=== PATIENT | male | born 1945 | race Caucasian/White ===

== ENCOUNTER 2023-02-13 15:37 | Outpatient (CLI) | payer MEDICARE, SELFPAY | END 2023-02-13 15:38 | disposition home or self-care (01) | LOC: NFLDUCREF 15:38 | PROVIDERS: PCP Family Medicine; Visit Provider Nurse Practitioner Family | DX: L02.212 Cutaneous abscess of back [any part, except buttock and flank] (principal) | CPT/HCPCS: 87070 ==

== ENCOUNTER 2024-01-25 16:51 | Outpatient (CLI) | payer MEDICARE, SELFPAY | END 2024-01-25 16:52 | disposition home or self-care (01) | LOC: AMB 01-29 10:37 | PROVIDERS: PCP Student in an Organized Health Care Education/Training Program; Visit Provider Family Medicine | DX: S79.912A Unspecified injury of left hip, initial encounter (principal); W01.0XXA Fall on same level from slipping, tripping and stumbling without subsequent striking against object, initial encounter; Y92.9 Unspecified place or not applicable | CPT/HCPCS: A0425; A0427 ==

== ENCOUNTER 2024-01-25 17:24 | Inpatient (IN) | payer MEDICARE, SELFPAY ==
[2024-01-25 17:32] VITALS: BP 135/55; PULSE 79; RESP 18; TEMP 36.8; O2SAT 97; BMI 28.1
--- NOTE | 2024-01-25 17:33 | ED.GENADULT ---
HPI - General Adult General Time Seen by Provider: 17:33 Date Seen: 01/25/24 Chief complaint: Hip Injury/Pain Stated complaint: Possible L hip fracture Time Seen by Provider: 01/25/24 17:26 Source: patient, family, EMS, RN notes reviewed and old records reviewed Mode of arrival: EMS Limitations: no limitations History of Present Illness HPI narrative: 78-year-old male who comes in today with left hip pain. Patient was getting out of his car, stepped off the curb lost his balance and fell on his left hip. Denies head injury, and has some abrasions of his left hand but no other injuries. Did not take a blood thinner, currently on lisinopril, atorvastatin, and aspirin. Recently treated for an abscess on his back but that has cleared. Related Data Home Medications Medication Instructions Recorded Confirmed atorvastatin 20 mg tablet 20 mg PO QDAY 02/13/23 01/01/24 lisinopril 10 mg tablet 10 mg PO QDAY 02/13/23 01/01/24 Allergies Allergy/AdvReac Type Severity Reaction Status Date / Time No Known Drug Allergies Allergy Verified 01/01/24 13:16 [facility], [facility] Medical History Infected sebaceous cyst ?L72.3 - Sebaceous cyst (ICD-10) ?L08.9 - Local infection of the skin and subcutaneous tissue, unspecified (ICD-10) Abscess ?L02.91 - Cutaneous abscess, unspecified (ICD-10) Social History Smoking Status: Never smoker Exam Narrative: Exam Narrative: General: Well-developed and well-nourished, no acute distress Head: Atraumatic and normocephalic Eyes: Pupils are equal reactive, extraocular motions intact, conjunctiva clear ENT: External nose and ears are normal, posterior pharynx without erythema or exudate Neck: No midline cervical tenderness, full spontaneous range of motion the neck, trachea midline, no adenopathy Heart: Regular rate and rhythm no murmurs or thrills Lungs: Clear to auscultation bilaterally without wheezes or crackles Abdomen: Soft, nontender, nondistended with active bowel sounds Musculoskeletal: Left leg shortened, externally rotated with deformity at the left hip Neurologic: Awake, alert, and oriented x3, no gross focal neurologic deficits, cranial nerves intact as tested Psych: Mood and affect are appropriate Skin: No rashes Const: Vital Signs, click to edit/add: Vital Signs - 24 hr 01/25/24 17:32 Temperature 98.2 F Pulse Rate [Right Pulse Oximeter] 79 Respiratory Rate 18 Blood Pressure [Ri ght Upper Arm] 135/55 L Pulse Oximetry 97 Oxygen Delivery Me thod Room Air Course Course ED Course: Patient seen and examined, reviewed most recent urgent care note from December 31 when patient was diagnosed with an abscess of the back, this was treated with incision and drainage and oral antibiotics. Patient presents today with left hip pain after fall. On exam here, he has some abrasions of the left hand but no pain with movement. He did has obvious deformity at the left proximal femur with left leg externally rotated and shortened. Symptoms are most consistent with hip fracture. Labs are ordered in anticipation for surgery, head CT will be performed given fall and age, left hip x-rays performed. Patient declines pain medication at this time. Plan for admission for surgical repair most likely tomorrow. Reevaluation(s) Time of Reevaluation #1: 18:20 Reevaluation #1: CT scan of the head independently interpreted by me negative for acute findings. X-ray of the left hip with intertrochanteric fracture. Care discussed with Dr. Canales, hospitalist for admission. Labs ordered and independently interpreted by me with normal CBC. Remaining labs are pending at this time. Time of Reevaluation #2: 18:33 Reevaluation #2: Care discussed with Kelli from Orthopedics, patient is stable for admission for surgery tomorrow, NPO after midnight. Vital Signs Vital signs: Initial Vital Signs Temperature 98.2 F 01/25/24 17:32 Temperature Source Temporal Artery Scan 01/25/24 17:32 Pulse Rate 79 01/25/24 17:32 Respiratory Rate 18 01/25/24 17:32 Blood Pressure 135/55 L 01/25/24 17:32 Blood Pressure Mean 81 01/25/24 17:32 Blood Pressure Position Sitting 01/25/24 17:32 Pulse Oximetry 97 01/25/24 17:32 Oxygen Delivery Method Room Air 01/25/24 17:32 Vital Signs Temperature 98.2 F 01/25/24 17:32 Pulse Rate 79 01/25/24 17:32 Respiratory Rate 18 01/25/24 17:32 Blood Pressure 135/55 L 01/25/24 17:32 Pulse Oximetry 97 01/25/24 17:32 Oxygen Delivery Method Room Air 01/25/24 17:32 Temperature 98.2 F 01/25/24 17:32 Pulse Rate 79 01/25/24 17:32 Respiratory Rate 18 01/25/24 17:32 Blood Pressure 135/55 L 01/25/24 17:32 Pulse Oximetry 97 01/25/24 17:32 Oxygen Delivery Method Room Air 01/25/24 17:32 Medical Decision Making Lab Data Labs: Lab Results 01/25/24 Range/Units 18:00 WBC 6.54 (4.50-11.00) K/uL RBC 4.39 (4.30-5.90) m/uL Hgb 12.6 L (13.5-17.5) gm/dL Hct 40.4 (37.0-53.0) % MCV 92 (80-100) fL MCH 29 (26-34) pg MCHC 31 L (32-36) gm/dL RDW Coeff of Brian 14.0 (11.5-15.5) % Plt Count 265 (140-440) K/uL Neut % (Auto) 78.6 H (42.0-72.0) % Lymph % (Auto) 13.3 L (20-44) % [place] % (Auto) 6.3 (0.0-11.0) % Eos % (Auto) 1.4 (0.0-7.0) % Baso % (Auto) 0.2 (0.0-3.0) % Neut # (Auto) 5.10 (1.7-7.0) K/uL Lymph # (Auto) 0.90 (0.90-2.90) K/uL [place] # (Auto) 0.40 (0.00-0.90) K/UL Eos # (Auto) 0.09 (0.00-0.50) K/uL Baso # (Auto) 0.01 (0.00-0.30) K/uL Abs Immat Gran (auto) 0.01 (0.00-0.30) K/uL Imm/Tot Granulo (auto) 0.2 % Discharge Plan Discharge Clinical Impression: Closed intertrochanteric fracture of left femur Patient Disposition: Admitted As Observation
--- NOTE | 2024-01-25 17:43 | CT_ITS ---
Patient: JOSE ANGEL TOBAR Facility:?[facility] Patient ID:?[id number] Site Patient ID:?[id number]. Site :?[id number] Study:?CT-Head WITHOUT-01/25/2024 6:18:59 PM Ordering Physician:ANKITA Final Report: Indication: Fall Technique: CT Head without IV contrast Comparison: None Findings: Brain Parenchyma: Global cortical involutional changes. No acute infarct, acute intracranial hemorrhage, mass effect, or midline shift. Periventricular and supraventricular white matter hypodensity, suggestive of chronic microvascular ischemic changes. Ventricles: No hydrocephalus. Mild ventricular enlargement, commensurate with the degree of cortical involutional changes and sulcal prominence. Extra-axial Spaces: No abnormal fluid collection. Paranasal sinuses: No significant mucosal thickening. Orbits: Unremarkable. Mastoid Sinuses: Unremarkable. Cranium: No acute fracture. Soft tissues: Unremarkable. Impression: No evidence of an acute intracranial process or acute traumatic injury. Please note that all CT scans at this facility use dose modulation, iterative reconstruction, and/or weight-based dosing when appropriate to reduce radiation dose to as low as reasonably achievable. Dictated by Ander Pleitez MD @ 01/25/2024 6:25:05 PM Signed by:?Ander Pleitez MD @01/25/2024 6:25:05 PM (Electronic Signature)
--- NOTE | 2024-01-25 17:43 | XR_ITS ---
Patient: JOSE ANGEL TOBAR Facility:?[facility] Patient ID:?[id number] Site Patient ID:?[id number]. Site :?[id number] Study:?XRay-Hip Left 2 VIEW AND PELVIS-01/25/2024 6:19:18 PM Ordering Physician:ANKITA Final Report: Indication: HIP FRACTURE, PREOP Technique: Frontal view of the pelvis and frontal and lateral views of the left hip Comparison: None Findings/impression : Minimally comminuted left femoral intertrochanteric fracture with mild lateral displacement of the distal fracture segment. The left femoral head maintains its articulation with the acetabulum. No additional fractures. No suspicious osseous lesions. Iliac grafts. Likely dystrophic calcifications of the prostate. Vascular calcifications. Dictated by Ander Pleitez MD @ 01/25/2024 6:30:23 PM Signed by:?Ander Pleitez MD @01/25/2024 6:30:23 PM (Electronic Signature)
--- NOTE | 2024-01-25 17:43 | XR_ITS ---
Patient: JOSE ANGEL TOBAR Facility:?[facility] Patient ID:?[id number] Site Patient ID:?[id number]. Site :?1945 Study:?XRay-Chest 1 VIEW SUPINE-01/25/2024 6:19:10 PM Ordering Physician:ANKITA Final Report: Indication HIP FRACTURE, PREOP Technique One view(s) of the chest Comparison None Findings The cardiomediastinal silhouette and pulmonary vasculature are unremarkable. There is no focal airspace consolidation, pleural effusion, or pneumothorax. No displaced fractures. Abdominal aortic graft. Impression No acute cardiopulmonary process. Dictated by Ander Pleitez MD @ 01/25/2024 6:26:35 PM Signed by:?Ander Pleitez MD @01/25/2024 6:26:35 PM (Electronic Signature)
[2024-01-25 18:11] LABS: Basophils Absolute Auto 0.01 K/uL (0.00-0.30); Basophils Percent Auto 0.2 % (0.0-3.0); Eosinophils Absolute Auto 0.09 K/uL (0.00-0.50); Eosinophils Percent Auto 1.4 % (0.0-7.0); Hematocrit 40.4 % (37.0-53.0); Hemoglobin* 12.6 gm/dL (13.5-17.5); Immature Granulocytes Abs Auto 0.01 K/uL (0.00-0.30); Immature Granulocytes Pct Auto 0.2 %; Lymphocytes Percent Auto 13.3 % (20-44); Mean Corpuscular HGB Conc 31 gm/dL (32-36); Mean Corpuscular Hemoglobin 29 pg (26-34); Mean Corpuscular Volume 92 fL (80-100); Monocytes Percent Auto 6.3 % (0.0-11.0); Neutrophils Percent Auto 78.6 % (42.0-72.0); Platelet Count* 265 K/uL (140-440); Red Blood Count 4.39 m/uL (4.30-5.90); White Blood Count* 6.54 K/uL (4.50-11.00)
[2024-01-25 18:16] LABS: Slide Review Reflex No
[2024-01-25 18:30] VITALS: BP 136/57; PULSE 76; RESP 16; O2SAT 97
[2024-01-25 18:38] LABS: INR 0.96 (0.91-1.10); Prothrombin Time 13.4 Seconds
[2024-01-25 18:44] LABS: Chloride* 108 mmol/L (96-114); Potassium* 3.9 mmol/L (3.6-5.1); Sodium* 139 mmol/L (135-149)
[2024-01-25 18:46] LABS: Creatinine* 0.8 mg/dL (0.5-1.5); Est. Creatinine Clearance* 57.95; Estimated Glomerular Filt Rate 90 ml/min
[2024-01-25 18:47] LABS: Anion Gap 5 mEq/L (7-15); Blood Urea Nitrogen* 24 mg/dL (7-30); Calcium* 9.2 mg/dL (8.4-10.6); Carbon Dioxide* 26 mmol/L (20-32); Glucose* 106 mg/dL (60-115)
[2024-01-25 18:50] VITALS: BP 147/64; PULSE 73; RESP 16; TEMP 36.8; O2SAT 97; BMI 27.8
--- NOTE | 2024-01-25 18:51 | PM.IMHP1 ---
Hospitalist- H&P: HPI History of Present Illness Date Seen: 01/26/24 Chief complaint: Possible L hip fracture Narrative: ADMISSION HISTORY AND PHYSICAL - HOSPITALIST Chief Complaint: I fell, left hip pain HPI: 78-year-old male who was getting out of the vehicle driven by his [id number] when he lost his footing and fell on to his left hip. EMS was called. He was complaining of left hip pain. No loss of consciousness. No bleeding or other injuries. He had felt well prior, his usual state of health. He enjoyed watching a baseball game with his son and [id number]. She was dropping him off. His past medical history is most relevant for a repair of an aortic aneurysm in 2019. A distant history of an acute MD with angioplasty in the mid s. He takes Zestril and Lipitor. He lives alone. He no longer drives. ER COURSE: Displaced intertrochanteric left hip fracture diagnosed in the ED. Negative head CT. Negative chest x-ray. Normal lab work. Pain is minimal at rest. CODE STATUS: FULL CODE EMERGENCY CONTACT PLAN: Mayelin Patel? Son?Rel to Pat? [phone]?Cell Phone I've updated the PFSH, medications and allergies in the Expanse tabs. INVESTIGATIONS: LABS/MICRO/ECG/IMAGING CBC is reviewed. Hemoglobin 12.6, hematocrit 40.4. Normal white blood cell count. Normal platelets. INR 0.96. Chemistries normal. Including magnesium. Radiology studies: Impression: No evidence of an acute intracranial process or acute traumatic injury. Impression No acute cardiopulmonary process. Findings/impression : Minimally comminuted left femoral intertrochanteric fracture with mild lateral displacement of the distal fracture segment. The left femoral head maintains its articulation with the acetabulum. No additional fractures. No suspicious osseous lesions. Iliac grafts. Likely dystrophic calcifications of the prostate. Vascular calcifications. REVIEW OF SYSTEMS: 12-point ROS completed with patient and negative unless otherwise stated in HPI or below. PHYSICAL EXAM: CONSTITUTIONAL: Moderately OSAGE. Insightful. Flat affect. VITAL SIGNS: see record. HEENT: Normocephalic, atraumatic. PERRL, EOMI, conjunctivae pink, no scleral icterus. Ears and nose externally normal. Pharynx normal. NECK: No JVD. No carotid bruit, no thyromegaly, no adenopathy. CHEST: Clear to auscultation bilaterally HEART: S1 and S2 normal. No harsh murmurs. Edema MUSCULOSKELETAL: Externally rotated left lower extremity with normal distal pulses. Can move his toes and flex his ankle. NEURO: Cranial nerves intact. Grossly intact. No asymmetric findings. SKIN: No rashes, petechiae, concerning changes PSYCHIATRIC: Euthymic. ADMIT TO MEDSURG: FLOOR CARE DVT: SCDs, Xarelto after surgery transitioning to aspirin GI: PO intake Time spent: Today I spent 75 minutes seeing the patient, discussing the patient with ER staff, reviewing Expanse and EPIC notes/diagnostics, discussing the care plan with our care time that includes social work, PT/OT, pharmacy, RT, penitentiary and documenting my impressions and plan in the medical record. [facility] Medical History Mild tetrahydrocannabinol (THC) abuse ?F12.10 - Cannabis abuse, uncomplicated (ICD-10) DOTTIE (obstructive sleep apnea) ?G47.33 - Obstructive sleep apnea (adult) (pediatric) (ICD-10) CAD (coronary artery disease) ?I25.10 - Atherosclerotic heart disease of [place] coronary artery without angina pectoris (ICD-10) AAA (abdominal aortic aneurysm) ?I71.40 - Abdominal aortic aneurysm, without rupture, unspecified (ICD-10) HTN (hypertension) ?I10 - Essential (primary) hypertension (ICD-10) Hyperlipidemia ?E78.5 - Hyperlipidemia, unspecified (ICD-10) Former smoker ?Z87.891 - Personal history of nicotine dependence (ICD-10) Infected sebaceous cyst ?L72.3 - Sebaceous cyst (ICD-10) ?L08.9 - Local infection of the skin and subcutaneous tissue, unspecified (ICD-10) Surgical History Status post endovascular aneurysm repair (EVAR) ?Z98.890 - Other specified postprocedural states (ICD-10) ?Z86.79 - Personal history of other diseases of the circulatory system (ICD-10) S/P PTCA (percutaneous transluminal coronary angioplasty) ?Z98.61 - Coronary angioplasty status (ICD-10) S/P rotator cuff repair ?Z98.890 - Other specified postprocedural states (ICD-10) H/O inguinal hernia repair ?Z98.890 - Other specified postprocedural states (ICD-10) ?Z87.19 - Personal history of other diseases of the digestive system (ICD-10) History of laparoscopic cholecystectomy ?Z90.49 - Acquired absence of other specified parts of digestive tract (ICD-10) H/O Spinal surgery ?Z98.890 - Other specified postprocedural states (ICD-10) Family History Sister Seizure disorder Social History Narrative: -moved to [place] from [place] in 2020. #1. #2 ( in pandemic). moved to [place] after her . sounds as if there was heavy alcohol use prior to her . 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 -heavy smoker until early -drinks wine, 1 glass, a few nights a week -does not drive -son Mayelin and his , Faye, are his emergency contacts -lives [place] by himself. no services. What is your current living situation?: I presently have a place to live Problems where you live: no known problems Problems where you live details: NA In the past 12 months, utilities in danger of being shut off: no In past 12 months, lack of transportation kept you from medical appts, meetings, work, or getting things needed for daily living: no In the past 12 mos, have been you worried that your food would run out before you had money to buy more?: never true In the past 12 mos, the food you bought just didn't last and you didn't have money to buy more?: never true Smoking Status: Never smoker How often do you have a drink containing alcohol: 4 or more times a week Alcohol type: wine Alcohol type details: glass of wine every night How many standard drinks containing alcohol do you have on a typical day: 1 or 2 AUDIT-C Alcohol total score: 4 How often does anyone, including family, friends and others, physically hurt you: never How often does anyone, including family, friends and others, insult or talk down to you: never How often does anyone, including family, friends and others, threaten you with harm: never How often does anyone, including family, friends and others, scream or curse at you: never Meds Home Medications and Allergies Home Medications Medication Instructions Recorded Confirmed Type atorvastatin 20 mg tablet 80 mg PO QDAY 02/13/23 01/26/24 History lisinopril 10 mg tablet 20 mg PO QDAY 02/13/23 01/26/24 History Allergies Allergy/AdvReac Type Severity Reaction Status Date / Time No Known Drug Allergies Allergy Verified 01/01/24 13:16 Exam Const: Vital Signs, click to edit/add: Vital Signs - 24 hr 01/25/24 17:32 Temperature 98.2 F Pulse Rate [Right Pulse Oximeter] 79 Respiratory Rate 18 Blood Pressure [Ri ght Upper Arm] 135/55 L Pulse Oximetry 97 Oxygen Delivery Me thod Room Air Hospitalist - H&P: Result Labs Labs: Short CBC 01/25/24 Range/Units 18:00 WBC 6.54 (4.50-11.00) K/uL Hgb 12.6 L (13.5-17.5) gm/dL Hct 40.4 (37.0-53.0) % Plt Count 265 (140-440) K/uL BMP 01/25/24 18:00 Sodium 139 Potassium 3.9 Chloride 108 Carbon Dioxide 26 BUN 24 Creatinine 0.8 Glucose 106 Calcium 9.2 Assessment and Plan Assessment and plan (1) Closed intertrochanteric fracture of left femur: Problem comment: -pt is stable, preoperative clearance is complete. No further workup needed. -hospital medicine team is happy to follow through to discharge and manage any perioperative concerns. -patient is not anticoagulated, will be on telemetry and preop is complete Status: Acute (2) CAD (coronary artery disease): Problem comment: distant hx of MD/PTCA (1993). no stents. -maintain telemetry Status: Acute (3) HTN (hypertension): Problem comment: zestril and aspirin -hold Zestril on the morning of 01/25 and react post surgery Status: Acute (4) DOTTIE (obstructive sleep apnea): Problem comment: has not worn CPAP in recent years -monitor oxygen saturations and supplemental O2 was ordered p.r.n. Status: Acute (5) Former smoker: Problem comment: 80+ pack year hx. quit in early 1999' Status: Acute (6) Mild tetrahydrocannabinol (THC) abuse: Problem comment: rare use (2x/last 6 months) - previous regular user Status: Acute
[2024-01-25 19:05] VITALS: O2SAT 96
[2024-01-25] MEDS: 0.9 % SODIUM CHLORIDE 1000 ml 1,000 ML 125 ML IV (20:31)
[2024-01-25] MEDS: ATORVASTATIN 10 MG TABLET 20 MG PO (21:17)
[2024-01-25 22:37] VITALS: BP 104/52; PULSE 73; RESP 17; TEMP 36.4; O2SAT 96
[2024-01-25] MEDS: HYDROmorphone 0.5 mg/0.5 ml inj IVP (22:50)
[2024-01-25 23:05] VITALS: PULSE 75
[2024-01-26] VITALS (26 sets, daily range): BP systolic 89–135; BP diastolic 45–92; PULSE 68–86; RESP 16–20; TEMP 36.4–37; O2SAT 91–98
[2024-01-26] MEDS: HYDROmorphone 0.5 mg/0.5 ml inj IVP ×3 (01:27→19:47)
[2024-01-26] MEDS: OXYCODONE 5 MG TABLET PO ×4 (04:11→23:05)
[2024-01-26] MEDS: 0.9 % SODIUM CHLORIDE 1000 ml 1,000 ML 125 ML IV (04:15)
--- NOTE | 2024-01-26 04:58 | PC.NURSE ---
Patient pleasant, alert and oriented.?Remained in bed. Non-weight bearing due to left hip fracture. Two skin tears to left hand cleansed with NS. Steri-strips and bandaids applied. Given PRN Dilaudid and Oxycodone for?left hip pain rated 3-4/10. Repositioned as pt allowed. NPO after midnight. Sip of water with pill during the night.?
--- NOTE | 2024-01-26 06:53 | PC.NURSE ---
Patient attempted to urinate in urinal x2 tonight. Bladdar scan at 0600 showed 526mL. Patient was straight cathed at that time. 600mL of clear straw colored urine drained. Patient tolerated catheterization well.
[2024-01-26] MEDS: CEFAZOLIN 2 GM in 0.9 % SODIUM CHLORIDE Mini-bag 100 ML IVPB ×2 (07:56→19:14)
--- NOTE | 2024-01-26 09:13 | PM.IMPN1 ---
Progress Note: A&P Assessment and plan (1) Closed intertrochanteric fracture of left femur: Problem details: -pt is stable, preoperative clearance is complete. No further workup needed. -hospital medicine team is happy to follow through to discharge and manage any perioperative concerns. -patient is not anticoagulated, will be on telemetry and preop is complete Status: Acute (2) CAD (coronary artery disease): Problem details: distant hx of MS/PTCA (1993). no stents. -maintain telemetry Status: Acute (3) HTN (hypertension): Problem details: zestril and aspirin -hold Zestril on the morning of 01/25 and react post surgery Status: Acute (4) DOTTIE (obstructive sleep apnea): Problem details: has not worn CPAP in recent years -monitor oxygen saturations and supplemental O2 was ordered p.r.n. Status: Acute (5) Former smoker: Problem details: 80+ pack year hx. quit in early Status: Acute (6) Mild tetrahydrocannabinol (THC) abuse: Problem details: rare use (2x/last 6 months) - previous regular user Status: Acute (7) Urinary retention: Problem details: Status post fall with left femur fracture, preoperatively, hip precautions in place Continue bladder scans, straight cath p.r.n., consider indwelling [place] cath prior to surgery Status: Acute Time Spent With Patient Total time spent: Total time spent caring for the patient today was 45 minutes. This includes time spent for the visit reviewing the chart, time spent during the visit, time spent after the visit and documentation and planning in coordination of care. Subjective Date Seen: 01/26/24 Interval history: It is seen preoperatively this morning, lying in bed, hip precautions. Reports pain is currently adequately managed, having just taken a pain pill. Denies headache or dizziness. Denies chest pain or shortness of breath. Currently NPO. Denies nausea. Nursing staff reports urinary retention, 600 mL measured. Scheduled for OR this afternoon. Continue to monitor urine output. May need to leave [place] catheter in place prior to surgery. Exam Narrative: Exam Narrative: PHYSICAL EXAM General: Pleasant, conversant, NAD HEENT: Normocephalic, atraumatic, sclera white, EOMI, oral mucosa moist Cardiovascular: RRR, S1S2. No pitting edema Pulmonary: CTA bilaterally without rhonchi, rales, expiratory wheezes. No dyspnea Abdominal: Soft, nondistended, NTTP Neurological: Alert, answering questions appropriately, cranial nerves intact, no focal findings Extremities: Lies with left hip externally rotated as most comfortable. Neurovascularly intact Skin: Warm, dry. Const: Vital Signs, click to edit/add: Vital Signs - 24 hr 01/25/24 17:32 01/25/24 18:30 01/25/24 18:50 Temperature 98.2 F 98.2 F Pulse Rate Pulse Rate [Pulse Oximeter] 73 Pulse Rate [Right Pulse Oximeter] 79 76 Respiratory Rate 18 16 16 Blood Pressure [Ri ght Arm] 147/64 H Blood Pressure [Ri ght Upper Arm] 135/55 L 136/57 L Pulse Oximetry 97 97 97 Oxygen Delivery Me thod Room Air Room Air 01/25/24 19:05 01/25/24 22:37 01/25/24 22:37 Temperature 97.5 F L Pulse Rate Pulse Rate [Pulse Oximeter] 73 Pulse Rate [Right Pulse Oximeter] Respiratory Rate 17 Blood Pressure [Ri ght Arm] 104/52 L Blood Pressure [Ri ght Upper Arm] Pulse Oximetry 96 96 96 Oxygen Delivery Nj thod Room Air Room Air 01/25/24 23:05 01/26/24 02:55 01/26/24 07:00 Temperature 98.6 F Pulse Rate 75 Pulse Rate [Pulse Oximeter] 84 Pulse Rate [Right Pulse Oximeter] Respiratory Rate 17 Blood Pressure [Ri ght Arm] 108/49 L Blood Pressure [Ri ght Upper Arm] Pulse Oximetry 92 94 Oxygen Delivery Nj thod Room Air 01/26/24 07:00 01/26/24 07:00 Temperature 98.5 F Pulse Rate Pulse Rate [Pulse Oximeter] 84 84 Pulse Rate [Right Pulse Oximeter] Respiratory Rate 16 16 Blood Pressure [Ri ght Arm] 126/61 Blood Pressure [Ri ght Upper Arm] Pulse Oximetry 94 Oxygen Delivery Nj thod Room Air Labs Labs: Laboratory Results - last 24 hr 01/25/24 18:00 WBC 6.54 RBC 4.39 Hgb 12.6 L Hct 40.4 MCV 92 MCH 29 MCHC 31 L RDW Coeff of Brian 14.0 Plt Count 265 Neut % (Auto) 78.6 H Lymph % (Auto) 13.3 L Josephine % (Auto) 6.3 Eos % (Auto) 1.4 Baso % (Auto) 0.2 Neut # (Auto) 5.10 Lymph # (Auto) 0.90 Josephine # (Auto) 0.40 Eos # (Auto) 0.09 Baso # (Auto) 0.01 Abs Immat Gran (auto) 0.01 Imm/Tot Granulo (auto) 0.2 INR 0.96 Sodium 139 Potassium 3.9 Chloride 108 Carbon Dioxide 26 Anion Gap 5 L BUN 24 Creatinine 0.8 Estimated Creat Clear 57.95 Estimated GFR 90 Glucose 106 Calcium 9.2 Magnesium 2.0
[2024-01-26] MEDS: MIDAZOLAM HCL 1 MG/ML inj IVP (12:12)
[2024-01-26] MEDS: fentaNYL 100 MCG/2 ML inj IVP (12:14)
--- NOTE | 2024-01-26 12:24 | SUR.PREOP ---
Pt brought down to [facility] for purposes on the preop Block by anesthesia
[2024-01-26] MEDS: LACTATED RINGERS 1000 ML 1,000 ML 100 ML IV (12:25)
--- NOTE | 2024-01-26 12:27 | SUR.PREOP ---
TIME?OUT:?1212, left hip PT/RN/MDA?VERIFICATION?OF?SURGICAL?SITE,?PROCEDURE,?AND?CONSENT OBTAINED?PRIOR?TO?INVASIVE?PROCEDURE.
--- NOTE | 2024-01-26 12:28 | W.PM.NB ---
Nerve Block Nerve Block Time Seen by Provider: 12:20 Date Seen: 01/26/24 Type of block requested by surgeon for post-operative analgesia: OLGA/LFCN Side: left Time out performed: Yes Verification of patient name: Yes Verification of date of : Yes Site marking: site marked Name of person performing procedure: John Continuous monitoring Was continuous monitoring of O2 sat, B/P, cardiac exercise specialist, recorded every 15 minutes?: Yes Procedure Checklist: sterile prep, needles and gloves Ultrasound guided. Images saved: Yes Medications given in 5ml increments after negative aspiration: Ropivicaine %: 0.5 mL: 30 Needle gauge: 20 Decadron (mg): 10 Precedex (mcg): 25 Patient tolerated procedure well: Yes Additional comments: Needle noted below psoas tendon needle noted adjacent to LFCN Block Charges Block Charge (with Pro Fee): Other Periph Nerve Block Use of Ultrasound Machine for Block: Yes- US Guidance/pain block
--- NOTE | 2024-01-26 12:28 | W.ANESCHARGE ---
Anesthesia Charges Start Date/Time Anesthesia Start Date: 01/26/24 Stop Date/Time Anesthesia Stop Date: 01/26/24 Summary Extremes of Age - Over 70 or under 1: MDA
[2024-01-26] MEDS: CEFAZOLIN 1 GM in 0.9 % SODIUM CHLORIDE Mini-bag 100 ML IVPB (12:45)
--- NOTE | 2024-01-26 12:47 | PM.ORCN ---
History of Present Illness HPI Date Seen: 01/26/24 Chief complaint: Possible L hip fracture Narrative: Thad is a pleasant 78-year-old male. He was getting out of a vehicle and trying to step up onto a curb when unfortunately has foot did not fully cleared. He started tipped backwards. Lost his balance. Fell onto his left hip. Difficulty bearing weight. Presented [facility]. X-rays were obtained revealed a left intertrochanteric femur fracture displaced, shortened, and angulated. He was admitted to the hospital and Orthopedics was consulted accordingly. His past medical history is most relevant for a repair of an aortic aneurysm in 2019 (stenting). A distant history of an acute VT with angioplasty in the mid s. He lives alone. Community ambulator. [facility] Medical History Mild tetrahydrocannabinol (THC) abuse ?F12.10 - Cannabis abuse, uncomplicated (ICD-10) DOTTIE (obstructive sleep apnea) ?G47.33 - Obstructive sleep apnea (adult) (pediatric) (ICD-10) CAD (coronary artery disease) ?I25.10 - Atherosclerotic heart disease of [place] coronary artery without angina pectoris (ICD-10) AAA (abdominal aortic aneurysm) ?I71.40 - Abdominal aortic aneurysm, without rupture, unspecified (ICD-10) HTN (hypertension) ?I10 - Essential (primary) hypertension (ICD-10) Hyperlipidemia ?E78.5 - Hyperlipidemia, unspecified (ICD-10) Former smoker ?Z87.891 - Personal history of nicotine dependence (ICD-10) Infected sebaceous cyst ?L72.3 - Sebaceous cyst (ICD-10) ?L08.9 - Local infection of the skin and subcutaneous tissue, unspecified (ICD-10) Surgical History Status post endovascular aneurysm repair (EVAR) ?Z98.890 - Other specified postprocedural states (ICD-10) ?Z86.79 - Personal history of other diseases of the circulatory system (ICD-10) S/P PTCA (percutaneous transluminal coronary angioplasty) ?Z98.61 - Coronary angioplasty status (ICD-10) S/P rotator cuff repair ?Z98.890 - Other specified postprocedural states (ICD-10) H/O inguinal hernia repair ?Z98.890 - Other specified postprocedural states (ICD-10) ?Z87.19 - Personal history of other diseases of the digestive system (ICD-10) History of laparoscopic cholecystectomy ?Z90.49 - Acquired absence of other specified parts of digestive tract (ICD-10) H/O Spinal surgery ?Z98.890 - Other specified postprocedural states (ICD-10) Family History Sister Seizure disorder Social History Narrative: -moved to [place] from [place] in 2020. #1. #2 ( in pandemic). moved to [place] after her . sounds as if there was heavy alcohol use prior to her . 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 -heavy smoker until early -drinks wine, 1 glass, a few nights a week -does not drive -son Mayelin and his , Faye, are his emergency contacts -lives in [place] by himself. no services. What is your current living situation?: I presently have a place to live Problems where you live: no known problems Problems where you live details: NA In the past 12 months, utilities in danger of being shut off: no In past 12 months, lack of transportation kept you from medical appts, meetings, work, or getting things needed for daily living: no In the past 12 mos, have been you worried that your food would run out before you had money to buy more?: never true In the past 12 mos, the food you bought just didn't last and you didn't have money to buy more?: never true Smoking Status: Never smoker How often do you have a drink containing alcohol: 4 or more times a week Alcohol type: wine Alcohol type details: glass of wine every night How many standard drinks containing alcohol do you have on a typical day: 1 or 2 AUDIT-C Alcohol total score: 4 How often does anyone, including family, friends and others, physically hurt you: never How often does anyone, including family, friends and others, insult or talk down to you: never How often does anyone, including family, friends and others, threaten you with harm: never How often does anyone, including family, friends and others, scream or curse at you: never Meds Home Medications and Allergies Home Medications Medication Instructions Recorded Confirmed Type atorvastatin 20 mg tablet 80 mg PO QDAY 02/13/23 01/26/24 History lisinopril 10 mg tablet 20 mg PO QDAY 02/13/23 01/26/24 History Allergies Allergy/AdvReac Type Severity Reaction Status Date / Time No Known Drug Allergies Allergy Verified 01/01/24 13:16 Ortho Exam Narrative Exam Narrative: He is lying supine in his hospital bed upon my interview. He is alert and oriented x3. Cooperative with the exam. Painful at the left hip with any range of motion or knee range of motion. Neurologic intact all 5 dermatomes/myotomes left lower extremity. Palpable DP and PT pulse. No erythema, induration, the cutaneous changes around the left hip. Generalized swelling is noted around the hip. Const Vital Signs, click to edit/add: Vital Signs - 24 hr 01/25/24 17:32 01/25/24 18:30 01/25/24 18:50 Temperature 98.2 F 98.2 F Pulse Rate Pulse Rate [Pulse Oximeter] 73 Pulse Rate [Right Pulse Oximeter] 79 76 Respiratory Rate 18 16 16 Blood Pressure Blood Pressure [Right Arm] 147/64 H Blood Pressure [Right Upper Arm] 135/55 L 136/57 L Pulse Oximetry 97 97 97 Oxygen Delivery Method Room Air Room Air Oxygen Flow Rate 01/25/24 19:05 01/25/24 22:37 01/25/24 22:37 Temperature 97.5 F L Pulse Rate Pulse Rate [Pulse Oximeter] 73 Pulse Rate [Right Pulse Oximeter] Respiratory Rate 17 Blood Pressure Blood Pressure [Right Arm] 104/52 L Blood Pressure [Right Upper Arm] Pulse Oximetry 96 96 96 Oxygen Delivery Method Room Air Room Air Oxygen Flow Rate 01/25/24 23:05 01/26/24 02:55 01/26/24 07:00 Temperature 98.6 F Pulse Rate 75 Pulse Rate [Pulse Oximeter] 84 Pulse Rate [Right Pulse Oximeter] Respiratory Rate 17 Blood Pressure Blood Pressure [Right Arm] 108/49 L Blood Pressure [Right Upper Arm] Pulse Oximetry 92 94 Oxygen Delivery Method Room Air Oxygen Flow Rate 01/26/24 07:00 01/26/24 07:00 01/26/24 10:25 Temperature 98.5 F Pulse Rate 78 Pulse Rate [Pulse Oximeter] 84 84 Pulse Rate [Right Pulse Oximeter] Respiratory Rate 16 16 Blood Pressure Blood Pressure [Right Arm] 126/61 Blood Pressure [Right Upper Arm] Pulse Oximetry 94 Oxygen Delivery Method Room Air Oxygen Flow Rate 01/26/24 11:00 01/26/24 12:14 Temperature 98.3 F Pulse Rate 81 Pulse Rate [Pulse Oximeter] 80 Pulse Rate [Right Pulse Oximeter] Respiratory Rate 18 20 Blood Pressure 133/66 Blood Pressure [Right Arm] 135/61 Blood Pressure [Right Upper Arm] Pulse Oximetry 93 97 Oxygen Delivery Method Room Air Nasal Cannula Oxygen Flow Rate 2 Results Labs Labs: Laboratory Results - last 48 hr 01/25/24 18:00 WBC 6.54 RBC 4.39 Hgb 12.6 L Hct 40.4 MCV 92 MCH 29 MCHC 31 L RDW Coeff of Brian 14.0 Plt Count 265 Neut % (Auto) 78.6 H Lymph % (Auto) 13.3 L Harvey % (Auto) 6.3 Eos % (Auto) 1.4 Baso % (Auto) 0.2 Neut # (Auto) 5.10 Lymph # (Auto) 0.90 Harvey # (Auto) 0.40 Eos # (Auto) 0.09 Baso # (Auto) 0.01 Abs Immat Gran (auto) 0.01 Imm/Tot Granulo (auto) 0.2 INR 0.96 Sodium 139 Potassium 3.9 Chloride 108 Carbon Dioxide 26 Anion Gap 5 L BUN 24 Creatinine 0.8 Estimated Creat Clear 57.95 Estimated GFR 90 Glucose 106 Calcium 9.2 Magnesium 2.0 Diagnostic results Additional Comments: AP pelvis, AP and cross-table lateral views left hip reviewed from [facility] dated 01/25/2024. These were ordered by doing provider and reviewed by me. This shows left intertrochanteric comminuted femur fracture with shortening, varus angulation, and external rotation of the shaft relative to the proximal portion. Joint spaces otherwise well preserved. Incidentally, Arteriosclerosis of the the iliac and femoral arteries are noted. Finally, stenting is seen from the abdominal aorta into the iliac arteries. Assessment and Plan Assessment and plan (1) Closed intertrochanteric fracture of left femur: Problem comment: -pt is stable, preoperative clearance is complete. No further workup needed. -hospital medicine team is happy to follow through to discharge and manage any perioperative concerns. -patient is not anticoagulated, will be on telemetry and preop is complete Status: Acute Total time spent: Total time spent is greater than 50% in coordination of care (as documented) at patient's floor/unit and/or counseling patient: (2) CAD (coronary artery disease): Problem comment: distant hx of VT/PTCA (1993). no stents. -maintain telemetry Status: Acute Total time spent: Total time spent is greater than 50% in coordination of care (as documented) at patient's floor/unit and/or counseling patient: (3) HTN (hypertension): Problem comment: zestril and aspirin -hold Zestril on the morning of 01/25 and react post surgery Status: Acute Total time spent: Total time spent is greater than 50% in coordination of care (as documented) at patient's floor/unit and/or counseling patient: (4) DOTTIE (obstructive sleep apnea): Problem comment: has not worn CPAP in recent years -monitor oxygen saturations and supplemental O2 was ordered p.r.n. Status: Acute Total time spent: Total time spent is greater than 50% in coordination of care (as documented) at patient's floor/unit and/or counseling patient: (5) Former smoker: Problem comment: 80+ pack year hx. quit in early Status: Acute Total time spent: Total time spent is greater than 50% in coordination of care (as documented) at patient's floor/unit and/or counseling patient: (6) Mild tetrahydrocannabinol (THC) abuse: Problem comment: rare use (2x/last 6 months) - previous regular user Status: Acute Total time spent: Total time spent is greater than 50% in coordination of care (as documented) at patient's floor/unit and/or counseling patient: (7) Urinary retention: Problem comment: Status post fall with left femur fracture, preoperatively, hip precautions in place Continue bladder scans, straight cath p.r.n., consider indwelling Camacho cath prior to surgery Status: Acute Total time spent: Total time spent is greater than 50% in coordination of care (as documented) at patient's floor/unit and/or counseling patient: Plan I had a good discussion today with the patient. Help him understand his current fracture pathology. In my opinion, since he is a previous community ambulator, I do think surgery is indicated. Although, we did outline the pros and cons of both nonoperative and surgical intervention. Surgery be for left femur intramedullary nail placement. We discussed the risks, benefits, and alternatives for this major urgent surgery in great detail including his age and cardiac/vascular history. After moderate and the postoperative timing and prognosis as well. He seems to stay understanding quite clearly. I did also communicate with the hospitalist team regarding the next step of surgery which we will plan for today. Postoperatively, but anticipate he would be able to weight bear as tolerated on the left lower extremity. Walker ambulation assistance. Anticipate the need for a long-term facility/rehab facility.
--- NOTE | 2024-01-26 12:52 | XR_ITS ---
Patient: JOSE ANGEL TOBAR Facility:?[facility] Patient ID:?[id number] Site Patient ID:?[id number]. Site :?[id number] Study:?XRay-Extremity Right FEMUR-01/26/2024 2:05:07 PM Ordering Physician:TANIYA Final Report: INDICATION: Femur rodding. TECHNIQUE: Four spot images of the left femur submitted. 15.21 mGy fluoroscopy dose. FINDINGS: Images taken during left femur ORIF. Dictated by Adán Kuhn MD @ 01/27/2024 9:02:05 AM Signed by:?Adán Kuhn MD @01/27/2024 9:02:05 AM (Electronic Signature)
--- NOTE | 2024-01-26 13:53 | PM.ORPRC ---
Procedure Note Date of procedure: 01/26/24 Procedure: PREOPERATIVE DIAGNOSES: 1. Left femur intertrochanteric fracture, closed, acute POSTOPERATIVE DIAGNOSES: 1. Left femur intertrochanteric fracture, closed, acute NAME OF OPERATION: 1. Left femur intertrochanteric fracture fixation with intramedullary nail 2. 56508 - intraoperative fluoroscopy up to 1 hour. SURGEON: Bert Randle MD CONTAINERS SALES REPRESENTATIVE: Nolberto Farmer PA-C. Of note, an assisted living assistant was critical for this case to aide in patient positioning, extremity positioning, tissue retraction, instrument manipulation, and closure. ANESTHESIA: Spinal EBL: 100 ml IMPLANTS: Synthes long TFN 12 mm x 400 mm with 115 mm lag screw and 2 distal 5.0 mm interlocking screws] COMPLICATIONS: None evident INDICATIONS: The patient is a pleasant, 78-year-old male who unfortunately sustained a recent fall. They landed on their left hip and were unable to bear weight. They experienced significant pain which prompted a visit to [facility]. X-rays were obtained and revealed a proximal femur fracture on the left consistent with a pertrochanteric (i.e. intertrochanteric / subtrochanteric) femur fracture. Given these findings, along with the desire to help with pain control and improved mobility / mobilization, surgery was recommended. FINDINGS: Comminuted intertrochanteric left femur fracture with displacement, shortening, and varus angulation. PROCEDURE: Following a thorough discussion of risks, benefits, and alternatives, consent was obtained and the left hip was marked. After obtaining proper medical evaluation determining the patient was optimized prior to surgery, they were brought to the operating room and placed supine on the operating table. Induction of anesthesia undertaken. 1 g IV Ancef was administered within 1 hr of incision preoperatively. Proper time-out was performed identifying proper patient, site, and procedure. The operative extremity was prepped & draped in the appropriate sterile fashion using ChloraPrep after the patient was positioned on the Fowler table with the head in neutral alignment all bone prominences well padded. C-arm fluoroscopic imaging was utilized to obtain AP and lateral views of the operative hip. This indeed confirm proper reduction of the proximal femur fracture. 10 blade skin incision was made proximal to the greater trochanteric tip. Sharp incision through skin and gluteal fascia allowed palpation of the greater trochanteric tip. A sharp awl was utilized and placed against the greater trochanteric tip. This was confirmed on C-arm and both in AP and lateral planes to be in appropriate starting position. Aiming down the canal. Once breaching the cortex, the ball-tip guidewire was passed the length of the femur. Once confirming via palpable scrape and visual C-Arm imagining that the guide wire with intraosseous, the depth gauge was used. The proper nail length was selected. The opening / proximal reamer was used followed by diaphyseal reamers up to 13.5mm. The IMN was then opened and inserted and passed the length of the canal without difficulty. The triple trocar was then applied to the lateral femur, 10 blade incision through the skin and ITB band along the trocars allowed them to be advanced to the lateral cortex. This was confirmed fluoroscopically to be in appropriate position. The guide pin was then placed and confirmed on AP and lateral views with the goal of center center position. The length was measured as noted above and the reamer used followed by screw application. Reduction of the fracture was monitored during insertion. The proximal nail locking screw was tightened down, and left static as the fracture pattern was felt to be unstable. At this stage, C-arm confirmed proper screw/lag screw position. We then turned our attention to the distal interlocking screws. Perfect nightmute technique was utilized, and the 10 blade skin incision allowed the drill bit to be placed, and confirmed on C-arm fluoroscopic imaging to be within the oblong hole. This was measured and the screw placed with good security of the screw. A 2nd screw was placed in 1 of the other adjacent holes in a similar fashion. Again C-arm images were obtained to confirm position within the nail and the nail to be within the bone. At this stage, the wounds were thoroughly irrigated normal saline; closure was performed with #0 Vicryl for the deep gluteal fascia, and IT band. 2-0 Vicryl and 4-0 Monocryl was utilized for subcutaneous and subcuticular closure, respectively. The patient was awoken from anesthesia and transferred to the PACU in stable condition. PLAN: 1. Weight bear as tolerated operative lower extremity. 2. Encouraged ice. 3. Oxycodone for pain as needed. 4. Anticipate the need for [facility] facility transfer once medically stabilized 5. 23 hr perioperative antibiotics. 6. Xarelto for DVT prophylaxis along with Derick borja and SCDs.
--- NOTE | 2024-01-26 14:32 | W.ANESCHARGE ---
Anesthesia Charges Start Date/Time Anesthesia Start Date: 01/26/24 Anesthesia Start Time: 12:28 Stop Date/Time Anesthesia Stop Date: 01/26/24 Anesthesia Stop Time: 14:29 Summary Extremes of Age - Over 70 or under 1: MATERIALS SCIENTIST
--- NOTE | 2024-01-26 14:38 | W.ANESCHARGE ---
Anesthesia Charges Start Date/Time Anesthesia Start Date: 01/26/24 Anesthesia Start Time: 12:28 Stop Date/Time Anesthesia Stop Date: 01/26/24 Anesthesia Stop Time: 14:29 Summary Extremes of Age - Over 70 or under 1: MDA
[2024-01-26] MEDS: LACTATED RINGERS 1000 ML 1,000 ML 35 ML IV (14:41)
--- NOTE | 2024-01-26 18:50 | PC.NURSE ---
[End of Shift Nursing Note]: Patient arrived to unit post-operatively at 1500 post L) hip repair. Patient A&OX3 and has normal sensation in LLE. CMS intact. Patient dangled at edge of bed and stood this evening; weakness noted in L) leg. Patient's L) leg quite weak and patient unable to take any steps. Patient's post-operative pain adequately managed with oral PRN medications. Patient's diet advanced to diet and patient tolerating regular diet at this time. Camacho in place and patent. Patient has 3 incisions to LLE; all clean/dry/intact intact. Patient's vital signs stable at this time. Will continue to implement ongoing plan of care.
[2024-01-26] MEDS: ATORVASTATIN CALCIUM 40 MG TABLET 80 MG PO (21:26)
[2024-01-26] MEDS: LACTATED RINGERS 1000 ML 1,000 ML 75 ML IV (22:52)
[2024-01-27 02:16] VITALS: BP 112/62; PULSE 76; RESP 20; TEMP 37; O2SAT 93
[2024-01-27] MEDS: OXYCODONE 5 MG TABLET PO ×5 (02:51→21:57)
[2024-01-27] MEDS: CEFAZOLIN 2 GM in 0.9 % SODIUM CHLORIDE Mini-bag 100 ML IVPB ×2 (02:52→13:53)
[2024-01-27 06:28] LABS: Hematocrit 31.6 % (37.0-53.0); Hemoglobin* 9.8 gm/dL (13.5-17.5); Mean Corpuscular HGB Conc 31 gm/dL (32-36); Mean Corpuscular Hemoglobin 29 pg (26-34); Mean Corpuscular Volume 93 fL (80-100); Platelet Count* 240 K/uL (140-440)
[2024-01-27 06:30] LABS: Slide Review Reflex No
[2024-01-27 06:39] LABS: Chloride* 107 mmol/L (96-114); Sodium* 135 mmol/L (135-149)
[2024-01-27 06:40] LABS: Potassium* 4.2 mmol/L (3.6-5.1)
[2024-01-27 06:42] LABS: Creatinine* 0.6 mg/dL (0.5-1.5); Est. Creatinine Clearance* 57.95; Estimated Glomerular Filt Rate 98 ml/min
[2024-01-27 06:43] LABS: Anion Gap 3 mEq/L (7-15); Blood Urea Nitrogen* 18 mg/dL (7-30); Calcium* 8.7 mg/dL (8.4-10.6); Carbon Dioxide* 25 mmol/L (20-32); Glucose* 122 mg/dL (60-115)
[2024-01-27 07:00] VITALS: BP 122/54; PULSE 71; PULSE 74; RESP 16; RESP 18; TEMP 36.9; O2SAT 94
--- NOTE | 2024-01-27 08:33 | PC.NURSE ---
Patient pleasant, alert and oriented.?Dressings to left hip C, D & I. Remained in bed. Repositioned as pt allowed, alternating between?back and right side. Camacho catheter patent and draining clear yellow urine.?Given PRN Dilaudid and Oxycodone for?left hip pain rated 4/10. ?
[2024-01-27] MEDS: RIVAROXABAN 10 MG TABLET PO (08:34)
[2024-01-27] MEDS: lisinopriL 10 MG TABLET 20 MG PO (08:34)
--- NOTE | 2024-01-27 10:28 | P.IMPN_ITS ---
Progress Note: A&P Assessment and plan (1) Closed intertrochanteric fracture of left femur: Problem details: POD#1 s/p Left femur intertrochanteric fracture fixation with intramedullary nail -pain management and anticoagulation per Orthopedic surgery -encourage postoperative pulmonary hygiene -PT OT consulted, recommending SNF -social media designer to assist with placement, discharge planning Status: Acute (2) CAD (coronary artery disease): Problem details: distant hx of SD/PTCA (1993). no stents. -maintain telemetry for 24 hours Status: Acute (3) HTN (hypertension): Problem details: Resume lisinopril 20 mg, statin for hyperlipidemia Status: Acute (4) DOTTIE (obstructive sleep apnea): Problem details: has not worn CPAP in recent years -monitor oxygen saturations and supplemental O2 was ordered p.r.n. -continue postop pulmonary hygiene Status: Acute (5) Former smoker: Problem details: 80+ pack year hx. quit in early 1999' Status: Acute (6) Mild tetrahydrocannabinol (THC) abuse: Problem details: rare use (2x/last 6 months) - previous regular user Status: Acute (7) Urinary retention: Problem details: Status post fall with left femur fracture, preoperatively, hip precautions in place Continue bladder scans, straight cath p.r.n., consider indwelling Camacho cath prior to surgery, will remove today POD#1 and monitor Status: Acute Plan Continue therapies, awaiting placement for rehab Time Spent With Patient Total time spent: Total time spent caring for the patient today was 45 minutes. This includes time spent for the visit reviewing the chart, time spent during the visit, time spent after the visit and documentation and planning in coordination of care. Subjective Date Seen: 01/27/24 Interval history: Patient is POD#1 s/p Left femur intertrochanteric fracture fixation with intramedullary nail with Dr. Randle. No perioperative complications reported. EBL 100 mL. Patient is seen with son at bedside. Patient reports feeling pretty well this morning. Pain currently adequately managed. Working with PT and OT this morning. Plan is for SNF placement. Tolerating orals without nausea. Exam Narrative: Exam Narrative: PHYSICAL EXAM General: Pleasant, conversant, NAD Cardiovascular: RRR Pulmonary: No dyspnea on room air this morning Neurological: Alert, answering questions appropriately, cranial nerves intact, no focal findings Extremities: No gross joint deformity or swelling. Postoperative dressing in place, dry. Neurovascularly intact Skin: Warm, dry. Const: Vital Signs, click to edit/add: Vital Signs - 24 hr 01/26/24 11:00 01/26/24 12:14 01/26/24 14:25 Temperature 98.3 F 97.9 F Pulse Rate 81 74 Pulse Rate [Pulse Oximeter] 80 Respiratory Rate 18 20 16 Blood Pressure 133/66 102/51 L Blood Pressure [Ri ght Arm] 135/61 Pulse Oximetry 93 97 92 Oxygen Delivery Me thod Room Air Nasal Cannula Room Air Oxygen Flow Rate 2 01/26/24 14:30 01/26/24 14:35 01/26/24 14:40 Temperature Pulse Rate 72 68 72 Pulse Rate [Pulse Oximeter] Respiratory Rate 16 16 16 Blood Pressure 105/52 L 100/57 L 89/45 L Blood Pressure [Ri ght Arm] Pulse Oximetry 95 92 94 Oxygen Delivery Me thod Room Air Room Air Room Air Oxygen Flow Rate 01/26/24 14:45 01/26/24 14:50 01/26/24 14:56 Temperature 97.6 F Pulse Rate 78 78 79 Pulse Rate [Pulse Oximeter] Respiratory Rate 16 16 16 Blood Pressure 107/64 120/63 121/92 H Blood Pressure [Ri ght Arm] Pulse Oximetry 92 93 95 Oxygen Delivery Me thod Room Air Room Air Room Air Oxygen Flow Rate 01/26/24 15:00 01/26/24 15:00 01/26/24 15:00 Temperature 97.6 F Pulse Rate 70 69 Pulse Rate [Pulse Oximeter] Respiratory Rate 16 Blood Pressure 133/59 L Blood Pressure [Ri ght Arm] Pulse Oximetry 94 94 Oxygen Delivery Me thod Room Air Oxygen Flow Rate 01/26/24 15:15 01/26/24 15:30 01/26/24 15:45 Temperature 97.6 F Pulse Rate 74 Pulse Rate [Pulse Oximeter] Respiratory Rate 16 Blood Pressure 113/62 129/57 L 117/61 Blood Pressure [Ri ght Arm] Pulse Oximetry 91 Oxygen Delivery Me thod Nasal Cannula Oxygen Flow Rate 2 01/26/24 16:00 01/26/24 16:30 01/26/24 17:00 Temperature 98.3 F 98.1 F Pulse Rate 74 80 Pulse Rate [Pulse Oximeter] Respiratory Rate 16 16 Blood Pressure 119/60 127/62 124/63 Blood Pressure [Ri ght Arm] Pulse Oximetry 96 95 Oxygen Delivery Me thod Nasal Cannula Room Air Oxygen Flow Rate 2 01/26/24 18:00 01/26/24 19:00 01/26/24 20:00 Temperature 98.5 F 98.6 F 98.6 F Pulse Rate 86 76 79 Pulse Rate [Pulse Oximeter] Respiratory Rate 16 16 18 Blood Pressure 119/56 L 118/55 L 105/53 L Blood Pressure [Ri ght Arm] Pulse Oximetry 98 95 96 Oxygen Delivery Me thod Nasal Cannula Nasal Cannula Room Air Oxygen Flow Rate 2 2 01/26/24 21:00 01/26/24 22:39 01/26/24 22:45 Temperature 98.4 F Pulse Rate 75 Pulse Rate [Pulse Oximeter] Respiratory Rate 17 20 Blood Pressure 109/55 L Blood Pressure [Ri ght Arm] Pulse Oximetry 91 91 95 Oxygen Delivery Me thod Room Air Nasal Cannula Oxygen Flow Rate 2 01/26/24 22:45 01/26/24 23:00 01/27/24 02:16 Temperature 98.0 F 98.6 F Pulse Rate 75 Pulse Rate [Pulse Oximeter] 79 76 Respiratory Rate 20 20 Blood Pressure Blood Pressure [Ri ght Arm] 120/60 112/62 Pulse Oximetry 95 93 Oxygen Delivery Me thod Nasal Cannula Nasal Cannula Oxygen Flow Rate 2 1 01/27/24 07:00 01/27/24 07:00 01/27/24 07:00 Temperature Pulse Rate 74 Pulse Rate [Pulse Oximeter] 71 Respiratory Rate 18 Blood Pressure Blood Pressure [Ri ght Arm] Pulse Oximetry 94 Oxygen Delivery Me thod Oxygen Flow Rate 01/27/24 07:00 01/27/24 07:00 Temperature 98.5 F Pulse Rate Pulse Rate [Pulse Oximeter] 71 Respiratory Rate 16 18 Blood Pressure Blood Pressure [Ri ght Arm] 122/54 L Pulse Oximetry 94 94 Oxygen Delivery Me thod Room Air Room Air Oxygen Flow Rate Labs Labs: Laboratory Results - last 24 hr 01/27/24 06:02 WBC 8.90 RBC 3.40 L Hgb 9.8 L Hct 31.6 L MCV 93 MCH 29 MCHC 31 L Plt Count 240 Sodium 135 Potassium 4.2 Chloride 107 Carbon Dioxide 25 Anion Gap 3 L BUN 18 Creatinine 0.6 Estimated Creat Clear 57.95 Estimated GFR 98 Glucose 122 H Calcium 8.7
[2024-01-27 11:00] VITALS: BP 117/61; PULSE 69; RESP 18; TEMP 37.1; O2SAT 93
[2024-01-27 15:00] VITALS: BP 116/56; PULSE 67; PULSE 74; RESP 18; TEMP 37.2; O2SAT 95
--- NOTE | 2024-01-27 15:21 | PC.SOCIAL ---
Discharge planning: Met with pt and son in room regarding discharge plan. Both are in agreement that pt needs a short term rehab stay at discharge. Provided them with resource list of [facility] facilities contracted with [facility] insurance with the [place] [facility] of [facility] ratings provided. Pt requested placement in either [facility] or [facility]. Called and faxed information to both facilities for evaluation for admit. floor service worker spring to follow up as needed.
--- NOTE | 2024-01-27 16:50 | P.ORPN_ITS ---
Subjective Subjective Date Seen: 01/27/24 Principal diagnosis: Status left hip IM nail Interval history: I did not round on this patient this morning. Spoke with patient's nurse on the phone report the patient is doing okay. Heavy assistive to due to pain the left lower extremity. Having some urinary retention since Camacho catheter has been removed. They were considering straight catheter. He is alert and oriented x4 and responding appropriately to staff. I will plan to see patient tomorrow for rounding. Ortho Exam Const Vital Signs, click to edit/add: Vital Signs - 24 hr 01/26/24 17:00 01/26/24 18:00 01/26/24 19:00 Temperature 98.1 F 98.5 F 98.6 F Pulse Rate 80 86 76 Pulse Rate [Pulse Oximeter] Respiratory Rate 16 16 16 Blood Pressure 124/63 119/56 L 118/55 L Blood Pressure [Right Arm] Pulse Oximetry 95 98 95 Oxygen Delivery Method Room Air Nasal Cannula Nasal Cannula Oxygen Flow Rate 2 2 01/26/24 20:00 01/26/24 21:00 01/26/24 22:39 Temperature 98.6 F 98.4 F Pulse Rate 79 75 Pulse Rate [Pulse Oximeter] Respiratory Rate 18 17 Blood Pressure 105/53 L 109/55 L Blood Pressure [Right Arm] Pulse Oximetry 96 91 91 Oxygen Delivery Method Room Air Room Air Oxygen Flow Rate 01/26/24 22:45 01/26/24 22:45 01/26/24 23:00 Temperature 98.0 F Pulse Rate 75 Pulse Rate [Pulse Oximeter] 79 Respiratory Rate 20 20 Blood Pressure Blood Pressure [Right Arm] 120/60 Pulse Oximetry 95 95 Oxygen Delivery Method Nasal Cannula Nasal Cannula Oxygen Flow Rate 2 2 01/27/24 02:16 01/27/24 07:00 01/27/24 07:00 Temperature 98.6 F Pulse Rate 74 Pulse Rate [Pulse Oximeter] 76 Respiratory Rate 20 Blood Pressure Blood Pressure [Right Arm] 112/62 Pulse Oximetry 93 94 Oxygen Delivery Method Nasal Cannula Oxygen Flow Rate 1 01/27/24 07:00 01/27/24 07:00 01/27/24 07:00 Temperature 98.5 F Pulse Rate Pulse Rate [Pulse Oximeter] 71 71 Respiratory Rate 18 16 18 Blood Pressure Blood Pressure [Right Arm] 122/54 L Pulse Oximetry 94 94 Oxygen Delivery Method Room Air Room Air Oxygen Flow Rate 01/27/24 11:00 01/27/24 15:00 01/27/24 15:00 Temperature 98.8 F Pulse Rate Pulse Rate [Pulse Oximeter] 69 74 Respiratory Rate 18 18 Blood Pressure Blood Pressure [Right Arm] 117/61 Pulse Oximetry 93 95 Oxygen Delivery Method Room Air Oxygen Flow Rate 01/27/24 15:00 01/27/24 15:00 01/27/24 15:00 Temperature 98.9 F Pulse Rate 67 Pulse Rate [Pulse Oximeter] 74 Respiratory Rate 18 18 Blood Pressure Blood Pressure [Right Arm] 116/56 L Pulse Oximetry 95 95 Oxygen Delivery Method Room Air Room Air Oxygen Flow Rate Assessment and Plan Assessment and plan (1) Closed intertrochanteric fracture of left femur: Problem details: POD#1 s/p Left femur intertrochanteric fracture fixation with intramedullary nail -pain management and anticoagulation per Orthopedic surgery -encourage postoperative pulmonary hygiene -PT OT consulted, recommending SNF -social media campaign manager to assist with placement, discharge planning Status: Acute (2) CAD (coronary artery disease): Problem details: distant hx of [place]/PTCA (1993). no stents. -maintain telemetry for 24 hours Status: Acute (3) HTN (hypertension): Problem details: Resume lisinopril 20 mg, statin for hyperlipidemia Status: Acute (4) DOTTIE (obstructive sleep apnea): Problem details: has not worn CPAP in recent years -monitor oxygen saturations and supplemental O2 was ordered p.r.n. -continue postop pulmonary hygiene Status: Acute (5) Former smoker: Problem details: 80+ pack year hx. quit in early Status: Acute (6) Mild tetrahydrocannabinol (THC) abuse: Problem details: rare use (2x/last 6 months) - previous regular user Status: Acute (7) Urinary retention: Problem details: Status post fall with left femur fracture, preoperatively, hip precautions in place Continue bladder scans, straight cath p.r.n., consider indwelling Camacho cath prior to surgery, will remove today POD#1 and monitor Status: Acute Plan - Complete 23 hour perioperative antibiotics. - PT/OT consult for education and assistance. - Social work consult for discharge planning - Prescribed analgesics as needed - DVT prophylaxis: Rivaroxaban, and SCDs - Anticipation is for discharge to SNF for rehab once patient remains medically stable, pain is controlled, and they are safe with mobilization.
[2024-01-27] MEDS: 0.9 % SODIUM CHLORIDE 500 ML IV (18:37)
--- NOTE | 2024-01-27 19:01 | PC.NURSE ---
[End of Shift Nursing Note]: Patient A&OX3 throughout shift and recovering well post-operatively from recent L) hip repair. Patient ambulated to chair and back to bed with Ax2 today. Weakness and significant pain noted with transfers. Patient to discharge to facility for rehab. Camacho catheter removed. Patient trialed voiding after 6 hours and unable to. MD gave order to give PRN 500 mL fluid bolus, see MAR. Bolus running at this time. Patient's vitals within normal limits during this shift. Pain managed with PRN medication per MAR. Will continue to implement ongoing plan of care.
[2024-01-27 19:56] VITALS: BP 117/65; PULSE 74; RESP 18; TEMP 37.2; O2SAT 95
[2024-01-27] MEDS: ATORVASTATIN CALCIUM 40 MG TABLET 80 MG PO (21:57)
[2024-01-27] MEDS: ACETAMINOPHEN 325 MG TABLET PO (21:58)
[2024-01-27] MEDS: SODIUM CHLORIDE 0.9 % (FLUSH) 10 ML SYRINGE 5 ML IVF (21:59)
[2024-01-27 23:00] VITALS: BP 116/69; PULSE 77; TEMP 36.4; O2SAT 94; O2SAT 96
[2024-01-28 01:00] VITALS: BP 116/96; PULSE 100; RESP 18; TEMP 36.1; O2SAT 94
[2024-01-28 07:00] VITALS: PULSE 67
[2024-01-28 07:10] LABS: Hematocrit 32.6 % (37.0-53.0); Mean Corpuscular HGB Conc 31 gm/dL (32-36); Mean Corpuscular Hemoglobin 29 pg (26-34); Mean Corpuscular Volume 93 fL (80-100); Platelet Count* 258 K/uL (140-440); White Blood Count* 6.97 K/uL (4.50-11.00)
[2024-01-28 07:16] LABS: Chloride* 107 mmol/L (96-114); Potassium* 4.1 mmol/L (3.6-5.1); Slide Review Reflex No; Sodium* 138 mmol/L (135-149)
[2024-01-28 07:18] LABS: Creatinine* 0.7 mg/dL (0.5-1.5); Est. Creatinine Clearance* 57.95; Estimated Glomerular Filt Rate 94 ml/min
[2024-01-28 07:19] LABS: Anion Gap 4 mEq/L (7-15); Blood Urea Nitrogen* 15 mg/dL (7-30); Carbon Dioxide* 27 mmol/L (20-32); Glucose* 100 mg/dL (60-115)
[2024-01-28 07:30] VITALS: BP 119/54; PULSE 70; RESP 18; TEMP 36.6; O2SAT 95
--- NOTE | 2024-01-28 08:10 | PC.NURSE ---
Pt pleasant and cooperative. VSS Hesitant to walk but walked with assist of 2 and walker to BR at 2300. He was unable to void at that time. At 0130 still not able to void. Straight cathed for 500cc. Slept the rest of the night.
[2024-01-28] MEDS: RIVAROXABAN 10 MG TABLET PO (08:32)
[2024-01-28] MEDS: lisinopriL 10 MG TABLET 20 MG PO (08:32)
[2024-01-28] MEDS: OXYCODONE 5 MG TABLET PO ×2 (08:33→16:48)
[2024-01-28] MEDS: SODIUM CHLORIDE 0.9 % (FLUSH) 10 ML SYRINGE 5 ML IVF (08:33)
[2024-01-28 11:00] VITALS: BP 93/50; PULSE 73; RESP 18; TEMP 36.9; O2SAT 97
[2024-01-28 12:00] VITALS: BP 109/46; PULSE 74; RESP 18; O2SAT 94
--- NOTE | 2024-01-28 12:08 | PM.DS1 ---
DS: Providers Provider Date Seen: 01/28/24 Date of admission: 01/25/24 19:05 Primary care physician: GEORGIA UMANZOR DO Admitting Clinician: Faye Canales MD Consults: OT, PT, SW Attending Physician on discharge: Tiffany Lima MD Date of Discharge: 01/28/24 DS: Diagnosis Discharge Diagnosis (1) Closed intertrochanteric fracture of left femur: Status: Acute Problem details: - s/p Left femur intertrochanteric fracture fixation with intramedullary nail on 01/26/[address] Randle - pain management and anticoagulation per Orthopedic surgery - followed by PT, OT postoperatively, SNF stay recommended, appropriate for SNF discharge on 01/27 (2) CAD (coronary artery disease): Status: Acute Problem details: - distant hx of [place]/PTCA (1993), no stenting, on lisinopril and statin as outpatient - stable on telemetry postoperatively (3) HTN (hypertension): Status: Acute Problem details: - on lisinopril as an outpatient, this was held postoperatively given hypotension (4) DOTTIE (obstructive sleep apnea): Status: Acute Problem details: - has not worn CPAP in recent years - stable on room air postoperatively (5) Former smoker: Status: Acute Problem details: - 80+ pack year hx. quit in early (6) Mild tetrahydrocannabinol (THC) abuse: Status: Acute Problem details: - rare use (2x/last 6 months) - previous regular user (7) Urinary retention: Status: Acute Problem details: - status post fall with left femur fracture, preoperatively, hip precautions in place - Vance was removed postop day 1, patient failed voiding trial, fully replaced prior to discharge to SNF DS: Summary Hospital Course Hospital Course: Thad was admitted to the hospital on 01/24 after a mechanical fall, resulting in a left hip fracture, s/p Left femur intertrochanteric fracture fixation with intramedullary nail with Dr. Randle of Orthopedic Surgery on 01/26. Postoperatively, he was followed by therapies, who recommended SNF placement. Medically appropriate for d/c to [facility] on 01/28/24. Notable changes on discharge: - vance in place (failed postoperative voiding trial) - holding Lisinopril given postoperative hypotension Status at Discharge Functional status at discharge: uses cane/walker Overall status at discharge: patient is progressing back to baseline Time Spent with Patient Time attestation: Total time spent providing and/or coordinating discharge services: Time spent: Greater than 30 minutes Specific discharge activities: SNF discharge, medication reconciliation, collaboration with Orthopedic Surgery team Exam Narrative: Exam Narrative: GEN: Alert, eating lunch, answering questions appropriately HEENT: EOMIs bilaterally, no scleral icterus CV: RRR, soft systolic murmur without concerning features R: LCTA bilaterally without concerning wheezing Neuro: No focal deficits, no resting tremor Psych: Appropriate Const: Vital Signs, click to edit/add: Vital Signs - 24 hr 01/27/24 15:00 01/27/24 15:00 01/27/24 15:00 Temperature Pulse Rate Pulse Rate [Pulse Oximeter] 74 Respiratory Rate 18 18 Blood Pressure [Ri ght Arm] Pulse Oximetry 95 95 Oxygen Delivery Me thod Room Air 01/27/24 15:00 01/27/24 15:00 01/27/24 19:56 Temperature 98.9 F 98.9 F Pulse Rate 67 Pulse Rate [Pulse Oximeter] 74 74 Respiratory Rate 18 18 Blood Pressure [Ri ght Arm] 116/56 L 117/65 Pulse Oximetry 95 95 Oxygen Delivery Me thod Room Air Room Air 01/27/24 23:00 01/27/24 23:00 01/27/24 23:00 Temperature 97.6 F Pulse Rate Pulse Rate [Pulse Oximeter] 77 Respiratory Rate Blood Pressure [Ri ght Arm] 116/69 Pulse Oximetry 96 94 Oxygen Delivery Me thod Room Air Room Air 01/28/24 01:00 01/28/24 07:00 01/28/24 07:30 Temperature 97 F L 97.9 F Pulse Rate 67 Pulse Rate [Pulse Oximeter] 100 70 Respiratory Rate 18 18 Blood Pressure [Ri ght Arm] 116/96 H 119/54 L Pulse Oximetry 94 95 Oxygen Delivery Me thod Room Air Room Air 01/28/24 07:30 01/28/24 07:30 01/28/24 07:30 Temperature Pulse Rate Pulse Rate [Pulse Oximeter] 70 Respiratory Rate 18 18 Blood Pressure [Ri ght Arm] Pulse Oximetry 95 95 Oxygen Delivery Me thod Room Air 01/28/24 11:00 Temperature 98.5 F Pulse Rate Pulse Rate [Pulse Oximeter] 73 Respiratory Rate 18 Blood Pressure [Ri ght Arm] 93/50 L Pulse Oximetry 97 Oxygen Delivery Me thod Room Air DS: Data Data Completed and Pending Labs on day of discharge: Labs from last 24 hours 01/28/24 06:53 WBC 6.97 RBC 3.50 L Hgb 10.0 L Hct 32.6 L MCV 93 MCH 29 MCHC 31 L Plt Count 258 Sodium 138 Potassium 4.1 Chloride 107 Carbon Dioxide 27 Anion Gap 4 L BUN 15 Creatinine 0.7 Estimated Creat Clear 57.95 Estimated GFR 94 Glucose 100 Calcium 9.0 Discharge Plan Discharge Disposition: er [facility] Date of Admission: 01/25/24 19:05 Attending Provider on Discharge: Tiffany Lima Primary Care Provider: GEORGIA UMANZOR Condition: Improved Anticipated Discharge Date/Time: 01/28/24 12:06 Discharge Medications: New acetaminophen 325 mg Tablet 650 - 975 mg PO Q6H PRNQty: 90 0RF oxycodone 5 mg Tablet 5 - 10 mg PO Q4H PRN (Reason: Pain) Qty: 30 0RF sennosides-docusate sodium [Senna-S] 8.6-50 mg tablet 1 - 4 tab-cap PO BID PRN (Reason: constipation) Qty: 60 0RF Rx Instructions: Hold medication if experiencing loose stools. Xarelto 10 mg Tablet 10 mg PO DAILY Qty: 30 0RF Rx Instructions: (this Rx replaces previous Rx) Continued atorvastatin 20 mg tablet 80 mg PO QDAY Discontinued lisinopril 10 mg tablet 20 mg PO QDAY Discharge Orders: Discharge Order (Routine); Ordered 01/28/24 Ordered By: Tiffany Lima Additional Instructions: We are holding your lisinopril because your blood pressure has been low. I have asked rehab to check it once per day. If your BP is greater than 140/90 for 3 days in a row, restart your lisinopril (20mg daily). Keep the Vance catheter in for a few days - you can have a trial of voiding in 3-4 days. Wound: ? May remove bandages after 1 week. Remove dressing sooner if integrity is in question. ? No immersing wounds in water; showering okay; light scrub with your hand and body soap, rinse, dab dry ? Sutures are under the skin, will dissolve; allow surgical glue to come off naturally; do not scrub the wound or apply ointments/lotions ? Call our office with any redness that streaks, excessive drainage from the wound, or wound gapping. Ice/Elevate: ? Ice as needed for swelling and discomfort (ice pack); elevate extremity frequently above the heart. Motion/Exercise: ? Weight bear as tolerated operative extremity (walker/cane for ambulation assistance as needed) ? Per PT/OT. ? Straight leg raises daily: 1-2 sets of 10 reps Pain Medications: ? Oral narcotic as prescribed. Wean as tolerated. Additional acetaminophen and ibuprofen as needed. Blood Clot Prevention (DVT): ? Medication: 30 days of xarelto (1 month total treatment) Driving: ? Do not drive while taking narcotic pain medication ? Anticipate 4-6 weeks no driving if operative leg is driving leg Dental: ? No elective dental work for 6 months post-op. If there is an urgent/emergent dental need, contact our office for an antibiotic prescription. Smoking/Alcohol: ? Do not smoke; do no drink alcohol especially when taking postoperative oral narcotic medication Seek Care from you Primary Care Provider if you experience the following issues in the postoperative phase and beyond: ? Bacterial infections such as: pneumonia, bacterial skin infection (cellulitis), UTI, high fever, chills unrelated to the operative body part - call your primary care physician urgently for treatment in hopes to protect your health and the metal implant. Referrals: ? PT, OT per patient preference - evaluate treat total hip arthroplasty protocol, anterior approach (gait training, ROM, ADLs) Vaccines: ? No vaccines until 4-6 weeks postop Follow up: ? PA-C visit in 1 week, or once discharged from SNF ? Ortho surgeon follow-up in 6 weeks; repeat radiographs AP pelvis, cross table lateral operative hip If there are any acute concerns regarding your surgery, please call our orthopedic clinic ([phone]) Activity Level: Activity as Tolerated, Up with assist, Weight Bearing as Tolerated and Use Walker Activity Detail: per therapies Discharge Diet: Regular Follow Up Appointments: Karsten Gardner DO [Referring] - GEORGIA UMANZOR DO [Primary Care Provider] - Forms: MyHealth Info Instructions Admit to: SNF Discharge Potential: Good Can use facility standing orders?: Yes Code Status: Full Code Rehab Potential: Good Therapy: Physical Therapy and Occupational Therapy Therapy Orders: Evaluate and Treat Oxygen: No Urinary Catheter: Yes Vance Catheter Maltese Size: 16 Glucose Checks: n/a Next INR: n/a Hospice Evaluate and Admit: n/a Orders are good >30 days: Yes Signature: Tiffany Lima MD
--- NOTE | 2024-01-28 13:05 | PC.SOCIAL ---
Addendum entered by JONATHAN Skelton 01/28/24 15:46: Discharge planning: electrical maintenance worker provided the pt with The Important Message from Medicare form and explained the discharge appeal process. Pt is pleased with his discharge plan and does not plan to appeal. Social work to follow-up as needed. Original Note: Discharge planning: Pt was accepted to [facility] for admission today. electrical maintenance worker spoke with pt and his son and they are pleased with this plan. electrical maintenance worker spoke to pt and his son about transportation. Pt is not able to get in and out of a car and will need to take non-emergent EMS. electrical maintenance worker explained that the cost of the transportation via non-emergent EMS will be about $225.00($85 for pick-up and $140.00 for mileage from the hospital to [facility]= 28 miles x $5 a dskf=270). Pt and his son were fine with this and pt's son, Cheli, signed the transportation form. Discharge orders were sent to [facility] by the charge nurse on duty today. Pre-admission screening was completed and sent to [facility], as well. [id number]. Social work to follow-up as needed.
--- NOTE | 2024-01-28 13:56 | P.ORPN_ITS ---
Subjective Subjective Date Seen: 01/28/24 Principal diagnosis: Status left hip IM nail Interval history: Patient reports doing well. Only concern is pain left lower leg with ambulation/weight-bearing. He is happy assistive to. Also having urinary retention. Camacho catheter removed yesterday, which was replaced this morning due to continued urinary tension and unable to void urine voluntarily. Passing flatus. No acute events over night. Pain managed with scheduled and PRN medications, ice. Points to pain at the proximal lateral left hip with weight- bearing. DVT prophylaxis: Rivaroxaban, SCDs, walking. Denies fevers, chills, aches, N/V, CP, SOB/CANO, or lightheadedness. His son is present in the room. Ortho Exam Narrative Exam Narrative: -Patient appears comfortable in bed; no apparent acute distress -Alert and oriented times 3 -left lower extremity moderately swollen; soft tissues supple; no obvious erythema. Ecchymosis minimal. Warmth appropriate -Surgical dressings clean, dry, intact; no obvious drainage, no erythematous streaking peripheral to the bandage -Bilateral calves soft and supple; no significant swelling, edema, tenderness, erythema, discoloration, warmth, or palpable cords -2+ DP/PT pulses, intact dermatomes and myotomes distally (5/5 strength). No numbness about the lateral femoral cutaneous nerve distribution. Const Vital Signs, click to edit/add: Vital Signs - 24 hr 01/27/24 15:00 01/27/24 15:00 01/27/24 15:00 Temperature Pulse Rate Pulse Rate [Pulse Oximeter] 74 Respiratory Rate 18 18 Blood Pressure [Right Arm] Pulse Oximetry 95 95 Oxygen Delivery Method Room Air 01/27/24 15:00 01/27/24 15:00 01/27/24 19:56 Temperature 98.9 F 98.9 F Pulse Rate 67 Pulse Rate [Pulse Oximeter] 74 74 Respiratory Rate 18 18 Blood Pressure [Right Arm] 116/56 L 117/65 Pulse Oximetry 95 95 Oxygen Delivery Method Room Air Room Air 01/27/24 23:00 01/27/24 23:00 01/27/24 23:00 Temperature 97.6 F Pulse Rate Pulse Rate [Pulse Oximeter] 77 Respiratory Rate Blood Pressure [Right Arm] 116/69 Pulse Oximetry 96 94 Oxygen Delivery Method Room Air Room Air 01/28/24 01:00 01/28/24 07:00 01/28/24 07:30 Temperature 97 F L 97.9 F Pulse Rate 67 Pulse Rate [Pulse Oximeter] 100 70 Respiratory Rate 18 18 Blood Pressure [Right Arm] 116/96 H 119/54 L Pulse Oximetry 94 95 Oxygen Delivery Method Room Air Room Air 01/28/24 07:30 01/28/24 07:30 01/28/24 07:30 Temperature Pulse Rate Pulse Rate [Pulse Oximeter] 70 Respiratory Rate 18 18 Blood Pressure [Right Arm] Pulse Oximetry 95 95 Oxygen Delivery Method Room Air 01/28/24 11:00 01/28/24 12:00 Temperature 98.5 F Pulse Rate Pulse Rate [Pulse Oximeter] 73 74 Respiratory Rate 18 18 Blood Pressure [Right Arm] 93/50 L 109/46 L Pulse Oximetry 97 94 Oxygen Delivery Method Room Air Room Air Assessment and Plan Assessment and plan (1) Closed intertrochanteric fracture of left femur: Problem details: - s/p Left femur intertrochanteric fracture fixation with intramedullary nail on 01/26/[address] Randle - pain management and anticoagulation per Orthopedic surgery - followed by PT, OT postoperatively, SNF stay recommended, appropriate for SNF discharge on 01/27 Status: Acute (2) CAD (coronary artery disease): Problem details: - distant hx of [place]/PTCA (1993), no stenting, on lisinopril and statin as outpatient - stable on telemetry postoperatively Status: Acute (3) HTN (hypertension): Problem details: - on lisinopril as an outpatient, this was held postoperatively given hypotension Status: Acute (4) DOTTIE (obstructive sleep apnea): Problem details: - has not worn CPAP in recent years - stable on room air postoperatively Status: Acute (5) Former smoker: Problem details: - 80+ pack year hx. quit in early Status: Acute (6) Mild tetrahydrocannabinol (THC) abuse: Problem details: - rare use (2x/last 6 months) - previous regular user Status: Acute (7) Urinary retention: Problem details: - status post fall with left femur fracture, preoperatively, hip precautions in place - Camacho was removed postop day 1, patient failed voiding trial, fully replaced prior to discharge to SNF Status: Acute Plan - Complete 23 hour perioperative antibiotics. - PT/OT consult for education and assistance. - Social work consult for discharge planning - SNF will be [facility] on 01/28/2024 - Prescribed analgesics as needed - DVT prophylaxis: Rivaroxaban and SCDs - Anticipation is for discharge to SNF [facility] if the patient remains medically stable, pain is controlled, and they are safe with mobilization. -strongly encouraged patient to weightbear is tolerates; there will be pain with weight-bearing, but it is safe to weightbear on the components.
[2024-01-28 15:00] VITALS: BP 112/66; PULSE 75; RESP 18; TEMP 37.1; O2SAT 95
--- NOTE | 2024-01-28 16:54 | PC.NURSE ---
PATIENT UP WITH EZ STAND TO BATHROOM. BLADDER SCAN THIS AM SHOWED 500ML. PATIENT ATTEMPTED TO VOID IN BATHROOM BUT UNABLE TO. UPDATED MD AND ORDER TO PLACE T[place]CAN[place]. 16FR PLACED WITHOUT DIFFICULTY. RECEIVING OXYCODONE FOR PAIN CONTROL AND ACTIVE ICE TO HIP. DRESSINGS TO LEFT HIP CDI. TOLERATING REGULAR DIET WITH NO C/O N/V. REPORT GIVEN TO RADHA AT [facility]. SALINE LOCK DC'D. PATIENT TRANSFERRED VIA EMS. PATIENT'S BELONGINGS SENT WITH HIS SON.
== END 2024-01-28 16:45 | DRG 482 ==
LOC: ED 18:25 → MEDSURG 18:45
PROVIDERS: Orthopaedic Surgery Sports Medicine; Physician Assistant; Admitting Provider Family Medicine; Emergency Provider Family Medicine; PCP Student in an Organized Health Care Education/Training Program; Visit Provider Family Medicine
PROC: (CPT 27245; principal; 2024-01-26 11:15)
DX: S72.142A Displaced intertrochanteric fracture of left femur, initial encounter for closed fracture (principal); G89.18 Other acute postprocedural pain; W10.1XXA Fall (on)(from) sidewalk curb, initial encounter; I10 Essential (primary) hypertension; G47.33 Obstructive sleep apnea (adult) (pediatric); R33.8 Other retention of urine; F12.10 Cannabis abuse, uncomplicated; I25.10 Atherosclerotic heart disease of native coronary artery without angina pectoris; E78.5 Hyperlipidemia, unspecified; Z87.891 Personal history of nicotine dependence
CPT/HCPCS: 01210; 01230; 36415; 51701; 51702; 51798; 64450; 70450; 71045; 73502; 73552; 76942; 80048; 83735; 85025; 85027; 85610; 87070; 87186; 93005; 94761; 97110; 97116; 97161; 97165; 97530; 97535; 99100; 99285; G0378; A9270; C1713; J0690; J1100; J1170; J2250; J2371; J2405; J2704; J2795; J3010; J3490; J7030; J7120

== ENCOUNTER 2024-01-28 16:30 | Outpatient (CLI) | payer MEDICARE, SELFPAY | END 2024-01-28 16:31 | disposition home or self-care (01) | LOC: AMB 02-01 08:43 | PROVIDERS: PCP Student in an Organized Health Care Education/Training Program; Visit Provider Emergency Medicine | DX: S72.142S Displaced intertrochanteric fracture of left femur, sequela (principal) | CPT/HCPCS: A0425; A0428 ==

== ENCOUNTER 2024-10-26 06:43 | Day surgery (SDC) | payer MEDICARE, SELFPAY ==
[2024-10-26] VITALS (8 sets, daily range): BP systolic 141–153; BP diastolic 65–72; PULSE 62–70; RESP 16; TEMP 36.6–37.1; O2SAT 93–96; BMI 27.6
--- OUTSIDE RECORDS SUMMARY | 2024-10-26 06:46 | XMS_ITS | Clinical Summary ---
Author Organization [email or web address] [facility] [employer] [facility] Address [place], [place] [address] Care Team Providers Care Us Marketing Director Name Role Phone Daryl Gibson DO Primary Care Provider [phone] Allergies No known active allergies Medications acetaminophen (TYLENOL) 325 mg tablet Take 2-3 Tablets (650-975 mg) by mouth every 6 hours if needed for Pain. Max acetaminophen dose: 4000mg in 24 hrs. Active sennosides-docusate (SENOKOT S) (8.6-50 mg) tablet Take 1-4 Tablets by mouth 2 times daily if needed for Constipation. 024 Active wheelchairIndication s:Closed intertrochanteric fracture of left femur, initial encounter (HC),Accidental fall, initial encounter Wheelchair: Standard with cushion and with swing away leg rests. Length of need: 99 months. Active melatonin 5 mg tab tabletIndications:In somnia, idiopathic Melatonin 5mg tablets, take 1-2 tablets by mouth at bedtime as needed 180 Tablet 3 Active aspirin chewable 81 mg chewable tabletIndications:My ocardial infarction, unspecified NH type, unspecified artery (HC) TAKE 1 TABLET BY MOUTH DAILY 28 Tablet 12 Active atorvastatin (LIPITOR) 80 mg tabletIndications:My ocardial infarction, unspecified NH type, unspecified artery (HC),Hyperlipidemia, unspecified hyperlipidemia type Take 1 Tablet (80 mg) by mouth at bedtime. 90 Tablet 2 024 Active rivaroxaban (XARELTO) 10 mg tablet Take 1 Tablet (10 mg) by mouth once daily. 024 2024 Disconti nued(*Yamil careynt states no longer taking) ferrous sulfate 325 mg delayed release tabletIndications:Ot her iron deficiency anemia Take 1 tablet once every other day. 45 Tablet 3 024 2024 Disconti nued(*Me d complete /Regimen complete /Level of care change) Active Problems Problem Noted Date Diagnosed Date CAD (coronary artery disease) 09/22/2024 Closed intertrochanteric fracture of left femur 09/22/2024 Former smoker 09/22/2024 HTN (hypertension) 09/22/2024 Mild tetrahydrocannabinol (THC) abuse 09/22/2024 DOTTIE (obstructive sleep apnea) 09/22/2024 Benign essential hypertension 01/12/2024 Congenital pes planus 01/12/2024 Nondependent cannabis abuse 01/12/2024 Hyperlipidemia, unspecified 06/04/2021 NH (myocardial infarction) 06/04/2021 Overview (06/04/2021): Scottie, tx with chemical compounder helper 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 Ascencio - LEFT inguinal hernia - [facility] - 10/26/2024 ) 10/08/2024 Travel 09/27/2024 1:45 PM HEALTH INFORMATICS SPECIALIST Office Visit [facility] [address] [place] [address] Sandy Ascencio MD Consult (Inguinal hernia) 09/27/2024 Travel 09/22/2024 1:30 PM HEALTH INFORMATICS SPECIALIST Ancillary Procedure [facility] [address] [place] [address] 09/22/2024 12:25 PM HEALTH INFORMATICS SPECIALIST Office Visit [facility] [address] [place] [address] Daryl Gibson, DO Hernia (Feels a bulge in the same area as in 2021 - did a lot of pt and ot lately from hip surgery ) 09/22/2024 Travel from Last 3 Months Immunizations Name Administration Dates Next Due COVID-19 VACCINE SPIKEVAX (M ODERNA 50MCG/0.5ML) 12YO+ PFS 06/27/2023 COVID-19 vaccine ([employer]-Bio NTech 30mcg/0.3mL) 12YO+ BIVALENT PF, MDV 01/03/2023,07/06/2022 COVID-19 vaccine (Pfizer-Bio NTech 30mcg/0.3mL) 12YO+ CATALINA-SUCROSE PF, MDV 12/10/2021 COVID-19 vaccine (AptDecoBio NTech 30mcg/0.3mL) PF, MDV 06/04/2021,10/28/2020,10/07/2020 Influenza Virus, Unspecified 06/27/2023, 06/04/2021,09/17/2012,2010,09/20/2010 Influenza, High-dose Inactivated 024,05/26/2020,06/28/2019,2017,06/09/2017,05/22/2016,06/21/2015,1 ,06/30/2013,07/17/2012, 011,08/13/2010,06/09/2007 Influenza, High-dose Quadriv alent Inactivated 07/06/2022 Influenza, Inactivated AIIV4 (Age 65+ Years) Preserv Free 06/27/2023,06/04/2021 Pneumococcal Poly,23-Valent (Pneumovax) 04/24/2021,07/02/2009,04/16/2001 Pneumococcal conj 13-Valent (Prevnar 13) 12/14/2014 Pneumococcal, Unspecified 07/02/2009 Tdap 08/19/2017,03/07/2017,09/08/2008 Zoster (Shingrix-RZV, recombinant) 03/06/2021, Zoster (Zostavax-ZVL, live) 04/18/2009 Family History Medical History Relation Name Comments COPD Father Seizures Sister Jocelyn Good Health Son Mayelin Relation Name Status Comments Father (Age 59) ? COD Mother (Age 95) Old age Sister Jocelyn Alive Son Mayelin Alive Social History Tobacco Use Types Packs/Day Years Used Date Smoking Tobacco: Former Cigarettes Smokeless Tobacco: Never Tobacco Cessation:Counseling Given: Yes Alcohol Use Standard Drinks/Week Comments Yes 1 (1 standard drink = 0.6 oz pur e alcohol) 1 glass on wine daily PHQ-2 Answer Date Recorded PHQ-2 TOTAL SCORE 0 01/12/2024 Social Connections Answer Date Recorded Do you often feel lonely or isolated from those around you? 0 01/12/2024 Financial Resource Strain Answer Date R ecorded Difficulty of Paying Living Expenses 3 01/12/2024 Difficulty of Paying Living Expenses Not on file 01/12/2024 Food Insecurity Answer Date Recorded Do you worry your food will run out before you are able to buy more? 1 01/12/2024 Transportation Needs Answer Date Record ed Does lack of transportation keep you from medica l appointments? 1 01/12/2024 Does lack of transportation keep you from work, meetings or getting things that you need? 1 01/12/2024 Housing Stability Answer Date Recorded What is your housing situation today? 1 01/12/2024 Utilities Answer Date Recorded Do you have trouble paying f or utilities (for example, heat, electricity, water, phone)? 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 Not on file Not on file Not on file Obstetrics History Last Filed Vital Signs Vital Sign Reading Time Taken Comments Blood Pressure 130/68 10/08/2024 10:16 AM HEALTH INFORMATICS SPECIALIST Pulse 68 10/08/2024 9:51 AM HEALTH INFORMATICS SPECIALIST Temperature 36.7 C (98 F) 01/03/2023 2:37 PM CDT Respiratory Rate - - Oxygen Saturation 97% 10/08/2024 9:51 AM HEALTH INFORMATICS SPECIALIST Inhaled Oxygen Concentration - - Weight 82.6 kg (182 lb 1.6 oz) 10/08/2024 9:51 A M HEALTH INFORMATICS SPECIALIST Height 172.7 cm (5' 8) 01/12/2024 2:06 PM CDT Body Mass Index 27.69 01/12/2024 2:06 PM CDT Plan of Treatment Health Maintenance Due Date Last Done Comments RSV vaccine for adults or (1 - 1-dose 75+ series) 2019 BMI (ht and wt on same day) for age 18+ 01/11/2025 01/12/2024, 01/03/2023, 12/10/2021 Depression screening for age 12+ 01/11/2025 01/12/2024, 01/03/2023, 01/03/2023, Additional history exists Medicare Wellness for age 65+ 01/12/2025, 01/03/2023, 12/10/2021 Tetanus booster 08/19/2027 08/19/2017, 02/08, 09/08/2008 Tdap Completed 08/19/2017, 02/08, 09/08/2008 Zoster (shingles) series for age 50+ Completed 03/06/2021, 01/01/2021, 04/18/2009 Pneumococcal series for age 50+ Completed 04/24/2021, 12/14/2014, 07/02/2009, Additional history exists COVID-19 vaccine series Completed 06/16/20, 06/27/2023, 01/03/2023, Additional history exists Influenza for age 65+ Completed 06/16/2024 , 06/27/2023, 06/27/2023, Additional history exists Procedures Procedure Name Priority Date/Time Associated Diagnosis Comments CT ABDOMEN PELVIS WO STAT 09/22/2024 1:14 PM HEALTH INFORMATICS SPECIALIST Abdominal pain, LLQ (left lower quadrant) Inguinal hernia, left from Last 3 Months Results * CT ABDOMEN PELVIS WO (09/22/2024 1:14 PM HEALTH INFORMATICS SPECIALIST) Anatomical Region Laterality Modality Abdomen, Pelvis, AORTA, LIVER, SPLEEN Computed Tomography 09/22/2024 1:37 PM HEALTH INFORMATICS SPECIALIST Addenda Addendum by Luis F Stone MD on 09/29/2024 8:01 PM HEALTH INFORMATICS SPECIALIST INDICATION: Left lower quadrant abdominal pain. Known left inguinal hernia repair with increasing bulge. TECHNIQUE: CT abdomen and pelvis acquired without IV contrast. COMPARISON: None. FINDINGS: Lower chest: Mild bronchial thickening. Minimal atelectasis within the lung bases. Liver: Well-defined indeterminate low-density mass measuring 3 centimeters within the left hepatic lobe. This has density measurements greater than simple fluid. Further evaluation with hepatic ultrasound or contrast-enhanced CT scan of the abdomen is recommended. 10 millimeter cyst in the left hepatic lobe (image 36, series 10 and 7 millimeter cyst in the right hepatic lobe (image 28, series 10). Calcified granulomas scattered throughout the liver. Gallbladder and bile ducts: Status post cholecystectomy. Pancreas: Unremarkable. No mass or inflammation. Spleen: Calcified granulomas scattered throughout the spleen. Adrenal glands: Mild low-density adrenal gland thickening, likely hyperplasia. Kidneys, ureters and urinary bladder: 2 centimeters cyst in the left interpolar kidney. No renal stone or hydronephrosis. Mild generalized wall thickening of the urinary bladder, likely secondary to underdistention. GI tract: Diverticulosis of the descending and sigmoid colon. No diverticulitis. Unremarkable stomach and small bowel. Normal appendix. Vasculature: Aortobifemoral endoluminal stent graft within infrarenal abdominal aortic aneurysm with diameter of 6.5 cm. Lymph nodes: No lymphadenopathy. Peritoneum: Unremarkable. No sign of mass or infiltration. No free air or significant free fluid. Abdominal Wall: Changes of left inguinal hernia repair. Small amount of fat within the left inguinal canal. No bowel containing hernia. Tiny umbilical hernia containing fat. No abdominal wall mass. Pelvis: Mild prostatomegaly with extensive coarse and dense calcifications. Bones: Degenerative disc disease and facet arthrosis of the lumbar spine. No fracture or suspicious bone lesion. IMPRESSION: 1. Indeterminate low-density 3 centimeter mass within the left hepatic lobe. Further evaluation with hepatic ultrasound or contrast-enhanced CT scan of the abdomen is recommended. 2. Evidence of previous granulomatous disease. 3. Adrenal gland hyperplasia. 4. Left renal cyst. 5. Colonic diverticulosis. 6. Aortobifem endoluminal stent graft within an infrarenal abdominal aortic aneurysm measuring 6.5 cm. 7. Status post left inguinal hernia repair with a small amount of fat in the left inguinal hernia. No bowel containing hernia identified. 8. Mild prostatomegaly with extensive coarse and dense calcifications. Please note that all CT scans at this facility use dose modulation, iterative reconstruction, and/or weight-based dosing when appropriate to reduce radiation dose to as low as reasonably achievable. Dictated by Luis F Stone MD @ 09/22/2024 1:37:24 PM ----- ADDENDUM ----- Addendum: Additional history has been provided, indicating that the patient has undergone previous right inguinal hernia repair, and that no previous left inguinal hernia repair has been performed. This examination has been re-evaluated on 09/29/2024 in light of this clinical information. The Abdominal Wall entry in the report should be changed as follows: Abdominal Wall: There are changes of previous right inguinal hernia repair. No recurrent or new right inguinal hernia is present. There is a small left inguinal hernia containing fat. No bowel containing left inguinal hernia is identified. A tiny umbilical hernia containing fat is present. No abdominal wall mass is identified. The original report and impression are otherwise unchanged. Dictated by Luis F Stone MD @ Sep 29 2024 7:50PM (Electronically Signed) Impressions 09/22/2024 1:37 PM HEALTH INFORMATICS SPECIALIST 1. Indeterminate low-density 3 centimeter mass within the left hepatic lobe. Further evaluation with hepatic ultrasound or contrast-enhanced CT scan of the abdomen is recommended. 2. Evidence of previous granulomatous disease. 3. Adrenal gland hyperplasia. 4. Left renal cyst. 5. Colonic diverticulosis. 6. Aortobifem endoluminal stent graft within an infrarenal abdominal aortic aneurysm measuring 6.5 cm. 7. Status post left inguinal hernia repair with a small amount of fat in the left inguinal hernia. No bowel containing hernia identified. 8. Mild prostatomegaly with extensive coarse and dense calcifications. Please note that all CT scans at this facility use dose modulation, iterative reconstruction, and/or weight-based dosing when appropriate to reduce radiation dose to as low as reasonably achievable. Dictated by Luis F Stone MD @ 09/22/2024 1:37:24 PM (Electronically Signed) Narrative 09/22/2024 1:37 PM HEALTH INFORMATICS SPECIALIST For Patients: As a result of the Century Cures Act, medical imaging exams and procedure reports are released immediately into your electronic medical record. You may view this report before your referring provider. If you have questions, please contact your health care provider. INDICATION: Left lower quadrant abdominal pain. Known left inguinal hernia repair with increasing bulge. TECHNIQUE: CT abdomen and pelvis acquired without IV contrast. COMPARISON: None. FINDINGS: Lower chest: Mild bronchial thickening. Minimal atelectasis within the lung bases. Liver: Well-defined indeterminate low-density mass measuring 3 centimeters within the left hepatic lobe. This has density measurements greater than simple fluid. Further evaluation with hepatic ultrasound or contrast-enhanced CT scan of the abdomen is recommended. 10 millimeter cyst in the left hepatic lobe (image 36, series 10 and 7 millimeter cyst in the right hepatic lobe (image 28, series 10). Calcified granulomas scattered throughout the liver. Gallbladder and bile ducts: Status post cholecystectomy. Pancreas: Unremarkable. No mass or inflammation. Spleen: Calcified granulomas scattered throughout the spleen. Adrenal glands: Mild low-density adrenal gland thickening, likely hyperplasia. Kidneys, ureters and urinary bladder: 2 centimeters cyst in the left interpolar kidney. No renal stone or hydronephrosis. Mild generalized wall thickening of the urinary bladder, likely secondary to underdistention. GI tract: Diverticulosis of the descending and sigmoid colon. No diverticulitis. Unremarkable stomach and small bowel. Normal appendix. Vasculature: Aortobifemoral endoluminal stent graft within infrarenal abdominal aortic aneurysm with diameter of 6.5 cm. Lymph nodes: No lymphadenopathy. Peritoneum: Unremarkable. No sign of mass or infiltration. No free air or significant free fluid. Abdominal Wall: Changes of left inguinal hernia repair. Small amount of fat within the left inguinal canal. No bowel containing hernia. Tiny umbilical hernia containing fat. No abdominal wall mass. Pelvis: Mild prostatomegaly with extensive coarse and dense calcifications. Bones: Degenerative disc disease and facet arthrosis of the lumbar spine. No fracture or suspicious bone lesion. Procedure Note Luis F Stone MD - 09/22/2024 For Patients: As a result of the Century Cures Act, medical imagingexams and procedure reports are released immediately into your electronicmedical record. You may view this report before your referring provider.If you have questions, please contact your health care provider. INDICATION: Left lower quadrant abdominal pain. Known left inguinal hernia repair withincreasing bulge. TECHNIQUE: CT abdomen and pelvis acquired without IV contrast. COMPARISON: None. FINDINGS: Lower chest: Mild bronchial thickening. Minimal atelectasis within thelung bases. Liver: Well-defined indeterminate low-density mass measuring 3 centimeterswithin the left hepatic lobe. This has density measurements greater thansimple fluid. Further evaluation with hepatic ultrasound orcontrast-enhanced CT scan of the abdomen is recommended. 10 millimetercyst in the left hepatic lobe (image 36, series 10 and 7 millimeter cystin the right hepatic lobe (image 28, series 10). Calcified granulomasscattered throughout the liver. Gallbladder and bile ducts: Status post cholecystectomy. Pancreas: Unremarkable. No mass or inflammation. Spleen: Calcified granulomas scattered throughout the spleen. Adrenal glands: Mild low-density adrenal gland thickening, likelyhyperplasia. Kidneys, ureters and urinary bladder: 2 centimeters cyst in the leftinterpolar kidney. No renal stone or hydronephrosis. Mild generalized wallthickening of the urinary bladder, likely secondary to underdistention. GI tract: Diverticulosis of the descending and sigmoid colon. Nodiverticulitis. Unremarkable stomach and small bowel. Normal appendix. Vasculature: Aortobifemoral endoluminal stent graft within infrarenalabdominal aortic aneurysm with diameter of 6.5 cm. Lymph nodes: No lymphadenopathy. Peritoneum: Unremarkable. No sign of mass or infiltration. No free air orsignificant free fluid. Abdominal Wall: Changes of left inguinal hernia repair. Small amount offat within the left inguinal canal. No bowel containing hernia. Tinyumbilical hernia containing fat. No abdominal wall mass. Pelvis: Mild prostatomegaly with extensive coarse and densecalcifications. Bones: Degenerative disc disease and facet arthrosis of the lumbar spine.No fracture or suspicious bone lesion. IMPRESSION: 1. Indeterminate low-density 3 centimeter mass within the left hepaticlobe. Further evaluation with hepatic ultrasound or contrast-enhanced CTscan of the abdomen is recommended. 2. Evidence of previous granulomatous disease. 3. Adrenal gland hyperplasia. 4. Left renal cyst. 5. Colonic diverticulosis. 6. Aortobifem endoluminal stent graft within an infrarenal abdominalaortic aneurysm measuring 6.5 cm. 7. Status post left inguinal hernia repair with a small amount of fat inthe left inguinal hernia. No bowel containing hernia identified. 8. Mild prostatomegaly with extensive coarse and dense calcifications. Please note that all CT scans at this facility use dose modulation,iterative reconstruction, and/or weight-based dosing when appropriate toreduce radiation dose to as low as reasonably achievable. Dictated by Luis F Stone MD @ 09/22/2024 1:37:24 PM (Electronically Signed) us Daryl Gibson DO CT Edited Result - Final from Last 3 Months Insurance [facility] MR/MSHO Care Teams Us Marketing Director Relationship Specialty Start Date End Date [place] [address] PCP - General Family Practice 01/03/23
[2024-10-26] MEDS: LACTATED RINGERS 1000 ML 1,000 ML 100 ML IV (06:50)
[2024-10-26] MEDS: SODIUM CHLORIDE 0.9 % (FLUSH) 10 ML SYRINGE IVF (07:13)
--- NOTE | 2024-10-26 07:44 | W.PM.H&PU ---
History & Physical Update History & Physical Update H&P Reviewed and patient assessed: No changes noted
[2024-10-26] MEDS: CEFAZOLIN 2 GM INJ IVP (07:57)
[2024-10-26] MEDS: BUPIVACAINE 0.25% 30 ML 20 ML INJECTION (08:05)
[2024-10-26] MEDS: LIDOCAINE 1%-EPI 1:100,000 20 ML INFILTRATI (08:05)
--- NOTE | 2024-10-26 09:41 | P.GSOP_ITS ---
Operative Note Date of procedure: 10/26/24 Pre-op diagnosis: 1. Symptomatic left inguinal hernia. 2. History of right inguinal hernia repair with mesh. Post-op diagnosis: 1. Left indirect and direct inguinal hernia. Type of Procedure: 1. Open left inguinal hernia repair with mesh. Indications: 79-year-old male was seen in clinic for evaluation of left inguinal bulge that was noticed several months prior to his presentation. The bulge has been increasing in size but was not painful. Patient was having regular bowel movements and tolerating regular diet. On his workup an abdominal CT was obtained that showed fat containing left inguinal hernia. On clinical exam there was a well-healed open right inguinal hernia repair scar from his previous surgery. The patient standing up and doing Valsalva there was a moderate to large size left inguinal bulge extending to the superior scrotum. This was not tender to palpation. Given patient's clinical history and his physical exam, an open left inguinal hernia repair was recommended. The procedure was discussed in detail. The risks associated procedure including infection, bleeding, nerve pain, injury to preperitoneal organs, and hernia recurrence were all discussed with the patient, and he agreed to proceed. Procedure Description: After discussing the risks and benefits of the procedure, the patient signed informed consent.? The operative site was marked and the patient was brought to the operating room and placed on the operating table in supine position.? Care was taken to pad the patient's pressure points.?? The patient was then sedated by anesthesia.?? The operative site was then prepped and draped in the usual sterile fashion.? A time-out was then performed. Surgical site was prepped and draped in sterile fashion. Site of the incision was marked with a marking pen and local anesthetic was injected. An oblique incision was made just above and medial to the left inguinal ligament. Subcutaneous tissue was dissected to external obliques. Superficial subcutaneous vascular branches were clamped, divided and tied with 3-0 Vicryl ties. Small incision was made through the external oblique aponeurosis with scalpel. I then used Metzenbaum scissors to dissect under external obliques and extend my incision. Mosquito clamps were placed on the edges of external oblique exposing the inguinal floor. I then identified the spermatic cord and the hernia sac. I bluntly dissected subcutaneous tissues in order to place Commiskey drain around the cord structures. Cremasteric fibers were peeled off and dissected off the hernia sac and cord structures. there was a small indirect inguinal sac identified. The hernia sac was from the spermatic cord bluntly and with cautery. The indirect hernia sac was incised and examined from the inside. Epiploic fat was adherent to the inside wall of the hernia sac. This was dissected off the hernia sac with cautery. The colonic epiploic fat was then pushed into the abdomen. A stitch using 3-0 Vicryl was placed near the base of the hernia sac through the sac and the hernia sac tied off. Hernia sac was then excised and not sent to pathology. The cut edge of the hernia sac was then oversewn with a locking Vicryl suture. Preperitoneal fat was noted to be adjacent to the spermatic cord at the internal ring. This was clamped with right angle clamp, excised with cautery, and tied with Vicryl tie. The indirect hernia sac was then pushed into preperitoneal space through the internal ring. Surgical field was examined for bleeding and hemostasis was achieved with cautery and Vicryl ties. I then identified direct hernia sac that was moderately sized. This was bluntly dissected from the spermatic cord. The hernia sac was wide and spanned the entire length of the inguinal floor. The hernia sac was entered with Metzenbaum scissors, and no intra-abdominal structures were incarcerated in the hernia sac. The hernia sac was then excised and oversewn with a running locking Vicryl suture. Hemostasis was achieved with cautery. An extra-large Bard mesh plug was inserted through the internal ring and secured to the adjacent tissues with interrupted 0-0 Neurolon sutures. A Bard mesh onlay was also used for hernia repair. The mesh onlay was sutured in place with interrupted 0-0 Neurolon sutures to the conjoint tendon medially and shelving edge laterally, pubic tubercle inferiorly. Simple interrupted sutures were placed using 0-0 Neurolon at the base of internal inguinal ring making it only large enough to fit a tip of one finger through. Spermatic cord was placed back into scrotum. Commiskey drain was removed. External oblique aponeurosis was closed with a running 3-0 Vicryl. Additional local anesthetic was injected into subcutaneous tissues. Gissel's fascia and subcutaneous tissue was re- approximated with interrupted Vicryl stitches. Skin incision was closed with 4-0 Monocryl subcuticular stitch. Steri strips and sterile dressing were applied over incision. All counts were correct at the end of the case. Patient tolerated this procedure well and was transferred to Same-day surgery in stable condition. Findings: Small indirect hernia sac and moderately sized direct hernia sac. Implants: Bard mesh Anesthesia: MAC and local Surgeon: Sandy Ascencio MD Estimated blood loss (mL): 5 Condition: stable Disposition: same day
--- NOTE | 2024-10-26 09:45 | P.ANES_ITS ---
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
--- NOTE | 2024-10-26 09:45 | W.ANESCHARGE ---
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
--- NOTE | 2024-10-26 10:08 | W.ANESCHARGE ---
Anesthesia Charges Start Date/Time Anesthesia Start Date: 10/26/24 Anesthesia Start Time: 07:44 Stop Date/Time Anesthesia Stop Date: 10/26/24 Anesthesia Stop Time: 09:43 Summary Extremes of Age - Over 70 or under 1: MDA Coding CPT Codes CPT Codes: ANESTH REPAIR OF HERNIA - 87810 ([id number]) QK - STOPE MINER 2-4 CNCRNT ANES PROC, QX - DIRECTOR CHEMISTRY SVC W/ MD MED DIRECTION, P3 - PATIENT W/SEVERE SYS DISEASE Additional Codes: Summary - Extremes of Age - Over 70 or under 1: MDA ([id number])
== END 2024-10-26 11:54 | disposition home or self-care (01) ==
PROVIDERS: PCP Student in an Organized Health Care Education/Training Program; Visit Provider Surgery
PROC: (CPT 49505; principal; 2024-10-26 08:00)
DX: K40.90 Unilateral inguinal hernia, without obstruction or gangrene, not specified as recurrent (principal)
CPT/HCPCS: 49505; 00830; 99100; C1781; J0665; J0690; J1100; J2405; J2704; J3010; J3490; J7120